=== PATIENT | male | born 1980 | race African-American/Black ===

== ENCOUNTER 2016-10-04 19:18 | Inpatient (IN) | payer OTHER ==
[~2016-10-04] VITALS: Ht 182.9 cm; Wt 72.6 kg
[2016-10-04 20:24] VITALS: BP 132/85
[2016-10-04] MEDS ORDERED: DuoNeb 0.5-3(2.5)mg/3ml neb HHN ONE (20:30)
[2016-10-04 20:38] LABS: EOSINOPHILS % (AUTO) 6.1 % (0.0-3.0); MEAN CORPUSCULAR HEMOGLOBIN 24.9 PG (27.0-31.0); MEAN CORPUSCULAR HGB CONC 31.2 G/DL (32.0-36.0); MEAN CORPUSCULAR VOLUME 80 FL (80-99); MEAN PLATELET VOLUME 7.4 FL (6.5-10.1); MONOCYTES % (AUTO) 4.6 % (1.0-10.0); NEUTROPHILS % (AUTO) 75.3 % (45.0-75.0); PLATELET COUNT 502 K/UL (150-450); RED BLOOD COUNT 3.99 M/UL (4.70-6.10); RED CELL DISTRIBUTION WIDTH 14.7 % (11.6-14.8); WHITE BLOOD COUNT 11.1 K/UL (4.8-10.8)
[2016-10-04 20:46] LABS: INR 1.1 (0.9-1.1); PROTHROMBIN TIME 11.2 SEC (9.30-11.50)
[2016-10-04 20:52] LABS: APPEARANCE,URINE VERY CLOUDY; KETONES,URINE NEGATIVE (NEGATIVE); LEUKOCYTE ESTERASE ,URINE NEGATIVE (NEGATIVE); NITRITE,URINE NEGATIVE (NEGATIVE); PH,URINE 6 (4.5-8.0); PROTEIN,URINE 3+ (NEGATIVE); UROBILINOGEN,URINE NORMAL MG/DL (0.0-1.0)
[2016-10-04 20:54] LABS: RBC,URINE TNTC /HPF (0 - 0)
[2016-10-04 20:55] LABS: BACTERIA,URINE MANY /HPF
[2016-10-04 21:00] VITALS: BP 121/50
[2016-10-04 21:02] LABS: TROPONIN I < 0.30 ng/mL (<=0.30)
[2016-10-04 21:04] LABS: ALANINE AMINOTRANSFERASE 40 U/L (3-41); ALBUMIN/GLOBULIN RATIO 0.9 (1.0-2.7); ANION GAP 17 (5-15); ASPARTATE AMINO TRANSFERASE 35 U/L (5-40); CARBON DIOXIDE 24 mEQ/L (20-30); CHLORIDE 97 mEQ/L (98-107); CREATININE 1.2 mg/dL (0.7-1.2); GLOMERULAR FILTRATION RATE > 60 mL/min (>60); HEMOLYSIS 1; POTASSIUM 4.6 mEQ/L (3.4-4.9); SODIUM 138 mEQ/L (135-145); TOTAL PROTEIN 7.3 g/dL (6.6-8.7)
[2016-10-04 21:14] LABS: CKMB 3.4 ng/mL (< 6.7)
[2016-10-04] MEDS ORDERED: Morphine Sulfate 4mg/ml Inj IVP ONE ×2 (21:30→22:30)
[2016-10-04] MEDS ORDERED: ALBUTEROL2.5 MG/3 M INH (21:40)
[2016-10-04] MEDS ORDERED: TRAMADOL HCL50 MG ORAL (21:40)
[2016-10-04 22:06] VITALS: BP 121/50
[2016-10-04] MEDS ORDERED: Ampicillin/Sulbactam Sod 3 GM in NS 110 ML IVPB ONE (22:30)
[2016-10-04] MEDS ORDERED: Unasyn 3gm Inj ONE (22:31)
[2016-10-04 23:38] VITALS: BP 139/104
[2016-10-04] MEDS ORDERED: DuoNeb 0.5-3(2.5)mg/3ml neb HHN PRN (23:45)
[2016-10-04] MEDS ORDERED: LORazepam Inj 2mg/ml 1ml IV PRN (23:45)
[2016-10-04] MEDS ORDERED: Ketorolac 30mg Inj IV PRN (23:45)
[2016-10-04] MEDS ORDERED: Nitroglycerin Subl 0.4mg tab (Bottle Of 25) SL PRN (23:45)
[2016-10-04] MEDS ORDERED: Promethazine/Codeine 5ml UD ORAL PRN (23:45)
[2016-10-05] MEDS: Morphine Sulfate 2mg/ml Inj IVP PRN ×2 (00:24→12:00)
[2016-10-05] MEDS: Solu-MEDROL 125mg Inj IV SCH ×4 (00:24→18:20)
--- NOTE | 2016-10-05 00:31 | Emergency Room Report ---
History of Present Illness General Chief Complaint: Dyspnea/Respdistress Source: Patient Present Illness HPI Patient is a 36-year-old male presented after increased difficulty breathing and hemoptysis. Patient was noted to have trace amount is. The patient had been having the hematuria. Patient had recent diagnosis of renal cell carcinoma. Patient was noted to have not had any prior biopsies done. He had the been having increased shortness of breath and increased cough. He denied any fever. The patient was noted to have prior CT imaging with some lung lesion several months ago Allergies: Coded Allergies: No Known Allergies (Unverified , 10/04/16) Patient History Past Medical History: see triage record Reviewed Nursing Documentation: PMH: Agreed, PSxH: Agreed Nursing Documentation-PMH Past Medical History: No History, Except For Review of Systems All Other Systems: negative except mentioned in HPI Physical Exam Vital Signs Date Time Temp Pulse Resp B/P Pulse Ox O2 Delivery O2 Flow Rate FiO2 10/04/16 19:37 98.4 125 32 118/67 74 Room Air 10/04/16 20:24 4.0 10/04/16 20:26 36 Sp02 EP Interpretation: abnormal - 85 General Appearance: alert, moderate distress, thin, Chronically Ill Head: normocephalic Eyes: bilateral eye PERRL ENT: normal pharynx, no angioedema Neck: full range of motion, supple Respiratory: wheezing, other Cardiovascular #1: tachycardia Cardiovascular #2: 0 carotid (R), 0 carotid (L), 0 radial (R), 0 radial (L), 0 femoral (R), 0 femoral (L), 0 dorsalis pedis (R), 0 dorsalis pedis (L) Gastrointestinal: normal bowel sounds, mass Musculoskeletal: normal inspection, back normal Neurologic: normal inspection, alert, oriented x3, responsive, 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 Differential diagnosis included was not limited to pulmonary embolism, bronchitis, lung mass, tuberculosis among others.Because of complexity of patient's case laboratory testing and imaging studies were ordered. Had a chest x-ray one view interpreted by me showed evidence of lung mass. CT imaging of the chest read by radiology showed extensive bilateral groundglass opacities with within lungs. 2.7 cm round masslike lesion right lower lobe 7 cm right renal mass. The patient was given breathing treatment started on IV antibiotics empirically. Patient was placed on BiPAP.Dr. farmer was contacted for inpatient management. Labs Test 10/04/16 20:01 10/04/16 20:19 10/04/16 20:32 Urine Color Brown Urine Appearance Very cloudy Urine pH 6 (4.5-8.0) Urine Specific [place] 1.020 (1.005-1.035) Urine Protein 3+ (NEGATIVE) Urine Glucose (UA) Negative (NEGATIVE) Urine Ketones Negative (NEGATIVE) Urine Occult Blood 5+ (NEGATIVE) Urine Nitrite Negative (NEGATIVE) Urine Bilirubin Negative (NEGATIVE) Urine Urobilinogen Normal MG/DL (0.0-1.0) Urine Leukocyte Esterase Negative (NEGATIVE) Urine RBC Tntc /HPF (0 - 0) Urine WBC 5-10 /HPF (0 - 0) Urine Squamous Epithelial Cells None /LPF (NONE/OCC) Urine Bacteria Many /HPF (NONE) White Blood Count 11.1 K/UL (4.8-10.8) Red Blood Count 3.99 M/UL (4.70-6.10) Hemoglobin 9.9 G/DL (14.2-18.0) Hematocrit 31.9 % (42.0-52.0) Mean Corpuscular Volume 80 FL (80-99) Mean Corpuscular Hemoglobin 24.9 PG (27.0-31.0) Mean Corpuscular Hemoglobin Concent 31.2 G/DL (32.0-36.0) Red Cell Distribution Width 14.7 % (11.6-14.8) Platelet Count 502 K/UL (150-450) Mean Platelet Volume 7.4 FL (6.5-10.1) Neutrophils (%) (Auto) 75.3 % (45.0-75.0) Lymphocytes (%) (Auto) 13.0 % (20.0-45.0) Monocytes (%) (Auto) 4.6 % (1.0-10.0) Eosinophils (%) (Auto) 6.1 % (0.0-3.0) Basophils (%) (Auto) 1.0 % (0.0-2.0) Prothrombin Time 11.2 SEC (9.30-11.50) Prothromb Time International Ratio 1.1 (0.9-1.1) Activated Partial Thromboplast Time 29 SEC (23-33) Sodium Level 138 mEQ/L (135-145) Potassium Level 4.6 mEQ/L (3.4-4.9) Chloride Level 97 mEQ/L (98-107) Carbon Dioxide Level 24 mEQ/L (20-30) Anion Gap 17 (5-15) Blood Urea Nitrogen 14 mg/dL (7-23) Creatinine 1.2 mg/dL (0.7-1.2) Estimat Glomerular Filtration Rate > 60 mL/min (>60) Glucose Level 112 mg/dL (74-106) Calcium Level 9.0 mg/dL (8.6-10.2) Total Bilirubin < 0.2 mg/dL (0.0-1.2) Aspartate Amino Transf (AST/SGOT) 35 U/L (5-40) Alanine Aminotransferase (ALT/SGPT) 40 U/L (3-41) Alkaline Phosphatase 93 U/L (40-129) Total Creatine Kinase 323 U/L (38-174) Creatine Kinase MB 3.4 ng/mL (< 6.7) Creatine Kinase MB Relative Index 1.0 Troponin I < 0.30 ng/mL (<=0.30) Total Protein 7.3 g/dL (6.6-8.7) Albumin 3.6 g/dL (3.5-5.2) Globulin 3.7 g/dL Albumin/Globulin Ratio 0.9 (1.0-2.7) Lactic Acid Level 1.40 mmol/L (0.66-2.22) Last Vital Signs Date Time Temp Pulse Resp B/P Pulse Ox O2 Delivery O2 Flow Rate FiO2 10/04/16 23:38 112 30 139/104 97 Bi-pap 10/04/16 22:39 40 10/04/16 22:06 98.4 10/04/16 21:00 4.0 Status: improved Disposition: HOME, SELF-CARE Condition: Stable Referrals: NOT CHOSEN IPA/,REFERRING (PCP) Mike Tan Oct 05, 2016 00:31
[2016-10-05 01:32] VITALS: BP 120/78
[2016-10-05 02:30] VITALS: BP 152/81
[2016-10-05 04:00] VITALS: BP 101/55
[2016-10-05] MEDS ORDERED: Zosyn 3.375gm inj ONE (04:11)
[2016-10-05] MEDS: Zosyn 3.375gm q8h **Extended infusion IVPB SCH ×4 (04:39→11:56)
[2016-10-05] MEDS ORDERED: Piperacillin/Tazobactam 2.25 GM in D5W 55 ML IV SCH (06:00)
[2016-10-05] MEDS: NovoLOG Insulin Flexpen SUBQ SCH ×4 (07:13→20:55)
[2016-10-05] MEDS ORDERED: Theophylline ER 100mg ORAL SCH (09:00)
[2016-10-05] MEDS ORDERED: Heparin 5000 units/ml inj SUBQ SCH (09:00)
--- NOTE | 2016-10-05 09:31 | History and Physical ---
History of Present Illness General Date patient seen: Oct 05, 2016 Reason for Hospitalization: Dyspnea/Respdistress Present Illness HPI 36-year-old male with hx of renal cell cancer, awaiting for surgery, [place] [facility] [place] of difficulty breathing and hemoptysis. The patient had been having the hematuria as well. The patient was noted to have prior CT imaging with some lung lesion several months ago. His CT in ER showed extensive metastasis. Allergies: Coded Allergies: No Known Allergies (Unverified , 10/04/16) Medication History Scheduled PRN Albuterol Sulfate* (Albuterol Sulfate Hhn*), Unknown Dose INH Q4H PRN for Shortness of Breath, (Reported) Tramadol Hcl* (Ultram*), Unknown Dose ORAL Q6H PRN for For Pain, (Reported) Patient History Healthcare decision maker Resuscitation status Full Code Advanced Directive on File No Past Medical/Surgical History Past Medical/Surgical History: (1) Renal cell cancer Review of Systems All Other Systems: negative except mentioned in HPI Physical Exam General Appearance: cachetic Lines, tubes and drains: peripheral, central line HEENT: normocephalic, atraumatic Neck: non-tender, normal alignment Respiratory/Chest: chest wall non-tender, lungs clear Breasts: no masses Cardiovascular/Chest: normal peripheral pulses Abdomen: normal bowel sounds, soft Genitourinary/Rectal: normal genital exam, normal rectal exam Extremities: normal range of motion, non-tender 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 Last 24 Hour Vital Signs Date Time Temp Pulse Resp B/P Pulse Ox O2 Delivery O2 Flow Rate FiO2 10/05/16 07:04 110 22 93 10/05/16 04:00 108 10/05/16 04:00 97.5 105 18 101/55 97 Nasal Cannula 10/05/16 02:58 107 24 98 Facial 40 10/05/16 02:30 96.1 107 21 152/81 98 Bi-pap 40 10/05/16 02:30 40 10/05/16 01:47 98.4 103 22 120/78 95 4.0 40 10/05/16 01:32 103 22 120/78 95 40 10/05/16 01:12 110 27 95 Facial 40 10/04/16 23:38 112 30 139/104 97 Bi-pap 10/04/16 22:39 107 43 97 Facial 40 10/04/16 22:06 98.4 10/04/16 22:06 98.4 117 21 121/50 97 Bi-pap 40 10/04/16 22:05 117 33 98 Facial 40 10/04/16 21:00 98.4 120 28 121/50 91 Nasal Cannula 4.0 10/04/16 20:45 32 88 Nasal Cannula 2.0 10/04/16 20:39 121 35 96 Nasal Cannula 4.0 36 10/04/16 20:26 118 29 Nasal Cannula 4.0 36 10/04/16 20:26 118 29 95 Nasal Cannula 4.0 36 10/04/16 20:24 98.4 123 32 132/85 87 Nasal Cannula 2.0 10/04/16 20:24 123 30 Nasal Cannula 4.0 10/04/16 19:37 98.4 125 32 118/67 74 Room Air Intake and Output 10/04/16 10/05/16 19:00 07:00 Intake Total 240 ml Output Total 300 ml Balance -60 ml Intake Oral 240 ml Output Urine Total 300 ml # Voids 2 # Bowel Movements 1 Laboratory Tests Test 10/04/16 20:01 10/04/16 20:19 10/04/16 20:32 Urine Color Brown Urine Appearance Very cloudy Urine pH 6 (4.5-8.0) Urine Specific [place] 1.020 (1.005-1.035) Urine Protein 3+ (NEGATIVE) H Urine Glucose (UA) Negative (NEGATIVE) Urine Ketones Negative (NEGATIVE) Urine Occult Blood 5+ (NEGATIVE) H Urine Nitrite Negative (NEGATIVE) Urine Bilirubin Negative (NEGATIVE) Urine Urobilinogen Normal MG/DL (0.0-1.0) Urine Leukocyte Esterase Negative (NEGATIVE) Urine RBC Tntc /HPF (0 - 0) H Urine WBC 5-10 /HPF (0 - 0) H Urine Squamous Epithelial Cells None /LPF (NONE/OCC) Urine Bacteria Many /HPF (NONE) H White Blood Count 11.1 K/UL (4.8-10.8) H Red Blood Count 3.99 M/UL (4.70-6.10) L Hemoglobin 9.9 G/DL (14.2-18.0) L Hematocrit 31.9 % (42.0-52.0) L Mean Corpuscular Volume 80 FL (80-99) Mean Corpuscular Hemoglobin 24.9 PG (27.0-31.0) L Mean Corpuscular Hemoglobin Concent 31.2 G/DL (32.0-36.0) L Red Cell Distribution Width 14.7 % (11.6-14.8) Platelet Count 502 K/UL (150-450) H Mean Platelet Volume 7.4 FL (6.5-10.1) Neutrophils (%) (Auto) 75.3 % (45.0-75.0) H Lymphocytes (%) (Auto) 13.0 % (20.0-45.0) L Monocytes (%) (Auto) 4.6 % (1.0-10.0) Eosinophils (%) (Auto) 6.1 % (0.0-3.0) H Basophils (%) (Auto) 1.0 % (0.0-2.0) Prothrombin Time 11.2 SEC (9.30-11.50) Prothromb Time International Ratio 1.1 (0.9-1.1) Activated Partial Thromboplast Time 29 SEC (23-33) Sodium Level 138 mEQ/L (135-145) Potassium Level 4.6 mEQ/L (3.4-4.9) Chloride Level 97 mEQ/L (98-107) L Carbon Dioxide Level 24 mEQ/L (20-30) Anion Gap 17 (5-15) H Blood Urea Nitrogen 14 mg/dL (7-23) Creatinine 1.2 mg/dL (0.7-1.2) Estimat Glomerular Filtration Rate > 60 mL/min (>60) Glucose Level 112 mg/dL (74-106) H Calcium Level 9.0 mg/dL (8.6-10.2) Total Bilirubin < 0.2 mg/dL (0.0-1.2) Aspartate Amino Transf (AST/SGOT) 35 U/L (5-40) Alanine Aminotransferase (ALT/SGPT) 40 U/L (3-41) Alkaline Phosphatase 93 U/L (40-129) Total Creatine Kinase 323 U/L (38-174) H Creatine Kinase MB 3.4 ng/mL (< 6.7) Creatine Kinase MB Relative Index 1.0 Troponin I < 0.30 ng/mL (<=0.30) Total Protein 7.3 g/dL (6.6-8.7) Albumin 3.6 g/dL (3.5-5.2) Globulin 3.7 g/dL Albumin/Globulin Ratio 0.9 (1.0-2.7) L Lactic Acid Level 1.40 mmol/L (0.66-2.22) Height (Feet): 6 Weight (Pounds): 160 Medications Current Medications Medications (Trade) Dose Ordered Sig/Jannie Route PRN Reason Start Time Stop Time Status Last Admin Dose Admin Albuterol/ Ipratropium (DuoNeb 0.5-3(2.5)mg/3ml) 3 ml Q4H PRN HHN dyspnea 10/04/16 23:45 10/09/16 23:44 Dextrose STAT PRN IV Hypoglycemia 10/04/16 23:45 11/03/16 23:44 Heparin Sodium (Porcine) (Heparin 5000 units/ml) 5,000 units EVERY 12 HOURS SUBQ 10/05/16 09:00 11/04/16 08:59 Insulin Aspart (NovoLOG) BEFORE MEALS AND HS SUBQ 10/05/16 06:30 11/04/16 06:29 10/05/16 07:13 Ketorolac Tromethamine (Toradol 30mg) 30 mg Q8H PRN IV moderate pain 4-6 10/04/16 23:45 10/09/16 23:44 10/05/16 02:35 Lorazepam (Ativan 2mg/ml 1ml) 0.5 mg Q4H PRN IV For Anxiety 10/04/16 23:45 10/11/16 23:44 Methylprednisolone Sodium Succinate (Solu-MEDROL) 60 mg EVERY 6 HOURS IV 10/05/16 00:00 11/04/16 00:00 10/05/16 06:27 Morphine Sulfate (Morphine Sulfate) 2 mg Q4H PRN IVP severe pain 7-10 10/04/16 23:45 10/11/16 23:44 10/05/16 00:24 Nitroglycerin (Ntg) 0.4 mg Q5M X 3 DOSES PRN SL Prn Chest Pain 10/04/16 23:45 11/03/16 23:44 Ondansetron HCl (Zofran) 4 mg Q6H PRN IVP Nausea & Vomiting 10/04/16 23:45 11/03/16 23:44 Piperacillin Sod/ Tazobactam Sod/ Dextrose (Zosyn/D5W) 110 ml @ 27.5 mls/hr Q8H IVPB 10/05/16 04:00 10/12/16 03:59 10/05/16 04:39 Promethazine HCl/ Codeine (Phenergan with Codeine) 5 ml Q6H PRN ORAL cough 10/04/16 23:45 11/03/16 23:44 Temazepam (Restoril) 15 mg HSPRN PRN ORAL Insomnia 10/04/16 23:45 10/11/16 23:44 Theophylline (Michael-Dur) 100 mg EVERY 12 HOURS ORAL 10/05/16 09:00 11/04/16 08:59 Assessment/Plan Problem List: (1) Lung mass ICD Codes: R91.8 - Other nonspecific abnormal finding of lung field SNOMED: 997396804, 82886908 (2) Acute respiratory failure ICD Codes: J96.00 - Acute respiratory failure, unspecified whether with hypoxia or hypercapnia SNOMED: 89002314 (3) Hemoptysis ICD Codes: R04.2 - Hemoptysis SNOMED: 88627026 (4) Hypoxia ICD Codes: R09.02 - Hypoxemia SNOMED: 053499075, 00521513 (5) Renal cell cancer ICD Codes: C64.9 - Malignant neoplasm of unspecified kidney, except renal pelvis SNOMED: 762507407, 70951936 Assessment/Plan check sputum antitussives IV steroids IV antibiotics JORGE ALLEN Oct 05, 2016 09:31
--- NOTE | 2016-10-05 10:30 | Diagnostic Imaging Report ---
Indication: Chest pain Technique: CT chest was performed utilizing automated exposure control with intravenous contrast material. Axial and coronal images were generated. CT dose: Total DLP 685 mGycm; CTDI vol 15.0 mGy Comparison: 10/04/16 Findings: There are extensive and patchy groundglass and consolidative opacities of the lungs bilaterally. Bilateral lung opacities are predominantly ill-defined although there is a more rounded masslike lesion in the right lower lobe measuring 2.7 cm. Moderate left and small right pleural effusions are seen. There is confluent bilateral hilar adenopathy measuring up to 4 x 1.9 cm on the right. There is a partially visualized 7 cm right renal heterogeneous hypodense mass. The osseous structures demonstrate no acute abnormality. Impression: Evaluation limited by motion. Extensive bilateral groundglass and consolidative opacities suggestive of infectious/inflammatory process such as pneumonia. Rounded masslike opacity in the right lower lobe measuring 2.7 cm. It is uncertain if is related to the above-mentioned process or neoplastic. Clinical correlation recommended. Approximately 7 cm hypodense right renal mass suspicious for neoplasm. Further evaluation recommended. Confluent bilateral hilar adenopathy could be inflammatory or neoplastic. Bilateral pleural effusions, left greater than right. Other findings as above. The CT scanner at [facility] is accredited by the [employer] and the scans are performed using protocols designed to limit radiation exposure to as low as reasonably achievable to attain images of sufficient resolution adequate for diagnostic evaluation.
[2016-10-05 12:00] VITALS: BP 123/72
[2016-10-05] MEDS ORDERED: Tubing IV Secondary IV ONE (13:43)
[2016-10-05] MEDS ORDERED: NS 275ml ONE (13:43)
--- NOTE | 2016-10-05 14:07 | Infectious Diseases Prog Note ---
Assessment/Plan Problems: (1) CAP (community acquired pneumonia) Assessment & Plan: on zosyn , will add vancomycin, send blood culture and sputum culture (2) Lung mass Assessment & Plan: with chronic tobacco abuse , rule out malignancy, recommend lung biopsy , and CT surgeon eval. pulmonary is following (3) Hemoptysis Assessment & Plan: due to the above , monitor H/H, and coagulation , transfuse blood as needed . pulmonary is following (4) Renal mass, right Assessment & Plan: suspect malignancy, recommend urologist consultation for possible surgical resection Subjective Allergies: Coded Allergies: No Known Allergies (Unverified , 10/04/16) Objective Vital Signs Last 24 Hour Vital Signs Date Time Temp Pulse Resp B/P Pulse Ox O2 Delivery O2 Flow Rate FiO2 10/05/16 13:08 105 30 98 Facial 40 10/05/16 10:58 98 24 92 10/05/16 08:56 108 24 92 10/05/16 08:00 97 10/05/16 07:04 110 22 93 10/05/16 04:00 108 10/05/16 04:00 97.5 105 18 101/55 97 Nasal Cannula 10/05/16 02:58 107 24 98 Facial 40 10/05/16 02:30 96.1 107 21 152/81 98 Bi-pap 40 10/05/16 02:30 40 10/05/16 01:47 98.4 103 22 120/78 95 4.0 40 10/05/16 01:32 103 22 120/78 95 40 10/05/16 01:12 110 27 95 Facial 40 10/04/16 23:38 112 30 139/104 97 Bi-pap 10/04/16 22:39 107 43 97 Facial 40 10/04/16 22:06 98.4 10/04/16 22:06 98.4 117 21 121/50 97 Bi-pap 40 10/04/16 22:05 117 33 98 Facial 40 10/04/16 21:00 98.4 120 28 121/50 91 Nasal Cannula 4.0 10/04/16 20:45 32 88 Nasal Cannula 2.0 10/04/16 20:39 121 35 96 Nasal Cannula 4.0 36 10/04/16 20:26 118 29 Nasal Cannula 4.0 36 10/04/16 20:26 118 29 95 Nasal Cannula 4.0 36 10/04/16 20:24 98.4 123 32 132/85 87 Nasal Cannula 2.0 10/04/16 20:24 123 30 Nasal Cannula 4.0 10/04/16 19:37 98.4 125 32 118/67 74 Room Air Height (Feet): 6 Weight (Pounds): 160 Laboratory Tests Test 10/04/16 20:01 10/04/16 20:19 10/04/16 20:32 Urine Color Brown Urine Appearance Very cloudy Urine pH 6 (4.5-8.0) Urine Specific [place] 1.020 (1.005-1.035) Urine Protein 3+ (NEGATIVE) H Urine Glucose (UA) Negative (NEGATIVE) Urine Ketones Negative (NEGATIVE) Urine Occult Blood 5+ (NEGATIVE) H Urine Nitrite Negative (NEGATIVE) Urine Bilirubin Negative (NEGATIVE) Urine Urobilinogen Normal MG/DL (0.0-1.0) Urine Leukocyte Esterase Negative (NEGATIVE) Urine RBC Tntc /HPF (0 - 0) H Urine WBC 5-10 /HPF (0 - 0) H Urine Squamous Epithelial Cells None /LPF (NONE/OCC) Urine Bacteria Many /HPF (NONE) H White Blood Count 11.1 K/UL (4.8-10.8) H Red Blood Count 3.99 M/UL (4.70-6.10) L Hemoglobin 9.9 G/DL (14.2-18.0) L Hematocrit 31.9 % (42.0-52.0) L Mean Corpuscular Volume 80 FL (80-99) Mean Corpuscular Hemoglobin 24.9 PG (27.0-31.0) L Mean Corpuscular Hemoglobin Concent 31.2 G/DL (32.0-36.0) L Red Cell Distribution Width 14.7 % (11.6-14.8) Platelet Count 502 K/UL (150-450) H Mean Platelet Volume 7.4 FL (6.5-10.1) Neutrophils (%) (Auto) 75.3 % (45.0-75.0) H Lymphocytes (%) (Auto) 13.0 % (20.0-45.0) L Monocytes (%) (Auto) 4.6 % (1.0-10.0) Eosinophils (%) (Auto) 6.1 % (0.0-3.0) H Basophils (%) (Auto) 1.0 % (0.0-2.0) Prothrombin Time 11.2 SEC (9.30-11.50) Prothromb Time International Ratio 1.1 (0.9-1.1) Activated Partial Thromboplast Time 29 SEC (23-33) Sodium Level 138 mEQ/L (135-145) Potassium Level 4.6 mEQ/L (3.4-4.9) Chloride Level 97 mEQ/L (98-107) L Carbon Dioxide Level 24 mEQ/L (20-30) Anion Gap 17 (5-15) H Blood Urea Nitrogen 14 mg/dL (7-23) Creatinine 1.2 mg/dL (0.7-1.2) Estimat Glomerular Filtration Rate > 60 mL/min (>60) Glucose Level 112 mg/dL (74-106) H Calcium Level 9.0 mg/dL (8.6-10.2) Total Bilirubin < 0.2 mg/dL (0.0-1.2) Aspartate Amino Transf (AST/SGOT) 35 U/L (5-40) Alanine Aminotransferase (ALT/SGPT) 40 U/L (3-41) Alkaline Phosphatase 93 U/L (40-129) Total Creatine Kinase 323 U/L (38-174) H Creatine Kinase MB 3.4 ng/mL (< 6.7) Creatine Kinase MB Relative Index 1.0 Troponin I < 0.30 ng/mL (<=0.30) Total Protein 7.3 g/dL (6.6-8.7) Albumin 3.6 g/dL (3.5-5.2) Globulin 3.7 g/dL Albumin/Globulin Ratio 0.9 (1.0-2.7) L Lactic Acid Level 1.40 mmol/L (0.66-2.22) Current Medications Medications (Trade) Dose Ordered Sig/Jannie Route PRN Reason Start Time Stop Time Status Last Admin Dose Admin Albuterol/ Ipratropium (DuoNeb 0.5-3(2.5)mg/3ml) 3 ml Q4H PRN HHN dyspnea 10/04/16 23:45 10/09/16 23:44 Dextrose STAT PRN IV Hypoglycemia 10/04/16 23:45 11/03/16 23:44 Heparin Sodium (Porcine) (Heparin 5000 units/ml) 5,000 units EVERY 12 HOURS SUBQ 10/05/16 09:00 11/04/16 08:59 10/05/16 09:18 Insulin Aspart (NovoLOG) BEFORE MEALS AND HS SUBQ 10/05/16 06:30 11/04/16 06:29 10/05/16 11:30 Ketorolac Tromethamine (Toradol 30mg) 30 mg Q8H PRN IV moderate pain 4-6 10/04/16 23:45 10/09/16 23:44 10/05/16 02:35 Lorazepam (Ativan 2mg/ml 1ml) 0.5 mg Q4H PRN IV For Anxiety 10/04/16 23:45 10/11/16 23:44 Methylprednisolone Sodium Succinate (Solu-MEDROL) 60 mg EVERY 6 HOURS IV 10/05/16 00:00 11/04/16 00:00 10/05/16 11:56 Morphine Sulfate (Morphine Sulfate) 2 mg Q4H PRN IVP severe pain 7-10 10/04/16 23:45 10/11/16 23:44 10/05/16 12:00 Nitroglycerin (Ntg) 0.4 mg Q5M X 3 DOSES PRN SL Prn Chest Pain 10/04/16 23:45 11/03/16 23:44 Ondansetron HCl (Zofran) 4 mg Q6H PRN IVP Nausea & Vomiting 10/04/16 23:45 11/03/16 23:44 Piperacillin Sod/ Tazobactam Sod/ Dextrose (Zosyn/D5W) 110 ml @ 27.5 mls/hr Q8H IVPB 10/05/16 04:00 10/12/16 03:59 10/05/16 11:56 Promethazine HCl/ Codeine (Phenergan with Codeine) 5 ml Q6H PRN ORAL cough 10/04/16 23:45 11/03/16 23:44 Temazepam (Restoril) 15 mg HSPRN PRN ORAL Insomnia 10/04/16 23:45 10/11/16 23:44 Theophylline (Michael-Dur) 100 mg EVERY 12 HOURS ORAL 10/05/16 09:00 11/04/16 08:59 10/05/16 09:16 Huang Sterling M.D. Oct 05, 2016 14:07
[2016-10-05 16:00] VITALS: BP 123/65
[2016-10-05] MEDS ORDERED: Vancomycin 1 GM in D5W 275 ML IVPB SCH (16:00)
[2016-10-05] MEDS ORDERED: Promethazine/Codeine 5ml UD ORAL PRN (16:00)
[2016-10-05] MEDS ORDERED: LORazepam Inj 2mg/ml 1ml IV PRN (16:00)
[2016-10-05] MEDS ORDERED: Morphine Sulfate 2mg/ml Inj IVP PRN (16:00)
[2016-10-05] MEDS ORDERED: Nitroglycerin Subl 0.4mg tab (Bottle Of 25) SL PRN (16:00)
[2016-10-05] MEDS: Vancomycin 1 GM in D5W 275 ML IVPB SCH (16:43)
[2016-10-05] MEDS: Ketorolac 30mg Inj IV PRN (17:08)
[2016-10-05] MEDS: Piperacillin/Tazobactam 3.375 GM in D5W 110 ML IVPB SCH (19:59)
[2016-10-05 20:00] VITALS: BP 128/83
[2016-10-05] MEDS: DuoNeb 0.5-3(2.5)mg/3ml neb HHN PRN ×2 (20:16→23:00)
--- NOTE | 2016-10-05 20:28 | History and Physical Report ---
DATE OF ADMISSION: 10/04/2016 TIME: At 8 a.m. CONSULTANTS: 1. Pushpa Andino M.D. 2. Raudel Goncalves M.D. 3. Huang Sterling M.D. 4. Carlos Whyte M.D. CHIEF COMPLAINT: Hemoptysis, short of breath, and renal mass. BRIEF HISTORY: This is a 36-year-old male who lives at home apparently coughed up some blood yesterday and he was slightly short of breath, became very worried, came in to [place] ER, diagnosed with above and admitted to [facility] for further care. Currently, O2 NC/short of breath, but otherwise no complaints. PAST MEDICAL HISTORY: Renal cell CA, lung mass, hypoxia, and hemoptysis. PAST SURGICAL HISTORY: None. MEDICATIONS: Heparin, theophylline, NovoLog, Solu-Medrol, Duo-Neb, Toradol, Ativan, morphine, nitroglycerin, Zofran, and Phenergan With Codeine. ALLERGIES: Denies. SOCIAL HISTORY: No smoke. No alcohol. No intravenous drug use. FAMILY HISTORY: Noncontributory. REVIEW OF SYSTEMS: No chest pain/shortness of breath. No nausea, vomiting or diarrhea. PHYSICAL EXAMINATION: GENERAL: The patient is calm in bed, oriented x3, no acute distress. O2 NC in place. VITAL SIGNS: Temperature 97 degrees, pulse 110, respiratory rate 22, and blood pressure 101/55. CARDIOVASCULAR: No murmur. LUNGS: Poor air exchange. ABDOMEN: Positive bowel sounds. Nontender and nondistended. EXTREMITIES: No cyanosis, clubbing or edema. NEUROLOGIC: Cranial nerves II through XII are grossly intact. Deep tendon reflex 2+/4. Muscle strength 4/5. LABORATORY AND DIAGNOSTIC DATA: White count 11.1, hemoglobin 9.9, hematocrit 31, and platelets is 502,000. BMP shows chloride 97 and glucose 112. CK is 323. INR is 1.1. Urinalysis showed 5+ blood, 3+ protein, and too numerous to count red blood cell. ASSESSMENT: 1. Hemoptysis. 2. Shortness of breath. 3. Renal mass, cell carcinoma. 4. Anemia. 5. Thrombocytosis. PLAN: Continue pre-medications. Antibiotics per Infectious Disease. O2 and pulmonary treatment. CBC and BMP in the morning. Dr. Andino, Dr. Goncalves, Dr. Sterling, Dr. Whyte, and Dr. Calderon to consult. We will continue to follow the patient. Abiel Mendosa D.O. DR: GAVIN JOB#: [id number] CC:
[2016-10-05] MEDS: Heparin 5000 units/ml inj SUBQ SCH (20:54)
[2016-10-05] MEDS: Theophylline ER 100mg ORAL SCH (20:55)
[2016-10-05 22:47] LABS: ANION GAP 13 (5-15); CALCIUM 9.4 mg/dL (8.6-10.2); CARBON DIOXIDE 27 mEQ/L (20-30); CHLORIDE 98 mEQ/L (98-107); CREATININE 1.3 mg/dL (0.7-1.2); GLOMERULAR FILTRATION RATE > 60 mL/min (>60); HEMOLYSIS 0; POTASSIUM 5.1 mEQ/L (3.4-4.9); SODIUM 138 mEQ/L (135-145)
[2016-10-06] VITALS: BP 115/63
[2016-10-06] MEDS: Solu-MEDROL 125mg Inj IV SCH ×4 (01:12→19:06)
[2016-10-06] MEDS: Ketorolac 30mg Inj IV PRN ×2 (01:13→19:07)
--- NOTE | 2016-10-06 01:18 | Consultation ---
DATE OF CONSULTATION: 10/05/2016 REQUESTING PHYSICIAN: Abiel Mendosa D.O. REASON FOR CONSULTATION: Bilateral pneumonia with diffuse patchy infiltration and recommendation for antibiotics therapy. HISTORY OF PRESENT ILLNESS: The patient is a 36-year-old male, who work as a outdoor power equipment mechanic, presented to the hospital with difficulty breathing and productive cough. The patient developed shortness of breath about a month ago with significant weight loss about 15 pounds. He starts coughing and developed shortness of breath with minimal activities. Lately, he has been coughing phlegm mixed with blood. He was short of breath, which prompt him to come into the emergency room for further evaluation. In ED, the patient had a CT scan of the chest and abdomen. It showed diffuse patchy infiltrates in both lungs with lung mass about 2.7 cm. He had also adrenal mass about 7 cm too, so he was admitted to the hospital and I was consulted by the primary provider for antibiotics recommendation for his pneumonia treatment. REVIEW OF SYSTEMS: A 12-point of systems reviewed were all negative apart from the one I mentioned above in my History and Physical. PAST MEDICAL HISTORY: Negative. PAST SURGICAL HISTORY: Negative. SOCIAL HISTORY: He smoked tobacco one to two packets per day for almost 15 years. He is a outdoor power equipment mechanic. Lives with his currently. FAMILY HISTORY: Negative for malignancy or recurrent infection. ALLERGIES: He has no known drug allergy. MEDICATIONS: The patient was started on Zosyn in the emergency room. For the rest of his medications, please refer to MAR. LABORATORY DATA: Labs showed white count of 11.1, hemoglobin of 9.9, hematocrit of 31.9, and platelet count of 542,000. BUN of 14 and creatinine of 1.2. AST of 35 and ALT of 40. Total creatine kinase of 323. IMAGING: CT scan of the chest showed extensive bilateral ground-glass and consolidative opacities suggestive of infectious or inflammatory process such as pneumonia, rounded mass-like opacity in the right lower lobe, measured 2.7 cm, approximately 7 cm hypodense right renal mass suspicious for neoplasm. PHYSICAL EXAMINATION: VITAL SIGNS: Temperature 97.5 degrees, pulse 105, respirations 30, blood pressure 101/55, and O2 saturation 98% with BiPAP and FiO2 of 40%. ASSESSMENT AND PLAN: 1. Community-acquired pneumonia with diffuse bilateral patchy infiltration, rule out infectious etiology such as bacterial versus fungal. We are going to screen him with fungal serology. At this point, we will continue bacterial antibiotics coverage with Zosyn and add vancomycin empirically. We will send blood culture and sputum culture. Monitor his chest x-ray. 2. Right renal mass, need MRI for further evaluation and urologist for possible resection. 3. Lung mass with chronic tobacco abuse, suspect malignancy. Recommend lung biopsy and CT surgery evaluation in addition to Oncology consult. The patient is being followed by car driver now. 4. Hemoptysis is due to the above. Continue to monitor hemoglobin and hematocrit . Transfuse blood as needed. Pulmonary is following. Thank you. Huang Sterling M.D. DR: PHILLIP JOB#: [id number] CC: SCOTT
--- NOTE | 2016-10-06 02:58 | Consultation ---
DATE OF CONSULTATION: 10/05/2016 HEMATOLOGY/ONCOLOGY CONSULT CONSULTING PHYSICIAN: Parish Calderon M.D. ATTENDING PHYSICIAN: Abiel Mendosa D.O. CURRENT COMPLAINT AND HISTORY OF PRESENT ILLNESS: Dear Dr. Abiel Mendosa, Today, I had an opportunity to see one of your patient, Mr. Zach Sanchez, who as you well aware is a 36-year-old delightful gentleman with a past medical history remarkable for renal cell carcinoma on the right side (clinical diagnosis, not biopsy proven). At this time, the patient developed hemoptysis and ended up in the emergency room at [facility]. During evaluation, on the CT scan of the chest it was found that the patient developed bilateral hilar adenopathy as well as right lower lobe lung mass as well as the right renal mass. During evaluation, it was also found that the patient developed significant leukocytosis, anemia, and thrombocytosis. My service was called to handle the issue of a renal cell mass, lung mass, as well as a blood dyscrasia. PAST MEDICAL HISTORY: 1. Right-sided renal mass, possible renal cell carcinoma (clinical diagnosis, not biopsy proven). 2. History of hematuria. 3. History of lung mass. SOCIAL HISTORY: No history of smoking. No history of illicit drug use. No history of alcohol abuse. FAMILY HISTORY: Noncontributory. REVIEW OF SYSTEMS: General: The patient is not in any significant distress. Respiratory: The patient is complaining of hemoptysis. The patient claims shortness of breath. Gastrointestinal: The patient claims constipation. Neuromuscular: The patient claim muscle aches. PHYSICAL EXAMINATION: VITAL SIGNS: T-max 97 degrees, respiratory rate 20, heart rate 80, and blood pressure 130/80. HEENT: Head, normocephalic and atraumatic. NECK: Supple. No thyroid enlargement. No lymphadenopathy. LUNGS: Decreased breath sounds bilaterally with a few rhonchi at the base. HEART: S1 and S2 regular. ABDOMEN: Soft and benign. No organomegaly. Bowel sounds present. EXTREMITIES: No cyanosis, clubbing, or edema. LABORATORY DATA: WBC 11.1, hemoglobin 9.9, hematocrit 31.9, and platelets 502,000. Coagulation show INR 1.1. Chemistry show creatinine 1.2. IMPRESSION: 1. Right-sided renal mass, possible renal cell carcinoma (clinical diagnosis, not biopsy proven). 2. Right lower lobe lung mass. 3. Bilateral hilar adenopathy, rule out renal cell carcinoma. 4. Metastasis to the lung, primary lung cancer. 5. Bilateral pleural effusion, rule out malignant pleural effusion. 6. Leukocytosis with left shift. 7. Anemia of malignancy. 8. Anemia of chronic disease. 9. Thrombocytosis, reactive. 10. Hemoptysis. 11. Respiratory insufficiency. 12. History of hematuria. 13. Failure to thrive. RECOMMENDATIONS: 1. Watch counts. 2. Watch coagulopathy. 3. CT scan of the abdomen and pelvis with a contrast to complete the staging. 4. Need tissue diagnosis. CT-guided lung biopsy versus bronchoscopy will be considered. 5. Urology evaluation for possible right-sided nephrectomy. 6. Respiratory treatment. 7. Renal Doppler of bilateral lower extremities to rule out DVT. 8. Heparin subcutaneously for DVT prophylaxis. 9. Skin care. 10. Nutrition. 11. Close followup. Dear Dr. Abiel Mendosa, I greatly appreciate the opportunity to participate in the care of one of your patients. this interesting and challenging case. Parish Calderon MD DR: JESSY JOB#: [id number] CC:
--- NOTE | 2016-10-06 03:38 | Consultation ---
DATE OF CONSULTATION: 10/05/2016 HEMATOLOGY/ONCOLOGY CONSULTATION CONSULTING PHYSICIAN: Parish Calderon M.D. REQUESTING PHYSICIAN: Abiel Mendosa D.O. REASON FOR CONSULTATION: Evaluation of anemia and history of chronic DVT. IDENTIFICATION DATA: Dear Dr. Yanci Mendosa, This is a 36-year-old male with past medical history unremarkable for renal cell carcinoma. This time, the patient admitted to [facility] with difficulty breathing and hemoptysis. The patient claims that she did not have any prior biopsy down. Again, the patient complains of shortness of breath and increased cough. During evaluation in the emergency room, it was found that the patient with lung mass as well as hilar adenopathy as well as renal mass. show malignancy as well as blood dyscrasia. PAST MEDICAL HISTORY: History of renal cell carcinoma (no biopsy proven). ALLERGIES: NKDA. FAMILY HISTORY: Noncontributory. DICTATION ENDED ABRUPTLY Parish Calderon MD DR: CORTEZ JOB#: [id number] CC:
[2016-10-06] MEDS: Vancomycin 1 GM in D5W 275 ML IVPB SCH ×2 (03:44→16:57)
[2016-10-06] MEDS: Piperacillin/Tazobactam 3.375 GM in D5W 110 ML IVPB SCH ×3 (04:00→20:06)
--- NOTE | 2016-10-06 04:58 | Consultation ---
DATE OF CONSULTATION: 10/05/2016 NOTE: BAD AUDIO QUALITY GASTROENTEROLOGY CONSULTATION CHIEF COMPLAINT: I was asked to see this patient for evaluation of possible hematemesis. HISTORY OF PRESENT ILLNESS: The patient is a 36-year-old man with a history of renal cell carcinoma who awaiting surgery, came to the hospital due to difficulty breathing and coughing up blood. possibly vomiting of blood, but upon further questioning, the patient clearly states that he had coughing with sputum formation and will get streaks of blood. The patient has had previous CT scan of some lung lesion. There is also some hematuria. He has extensive metastasis . PAST MEDICAL HISTORY: Renal cell carcinoma with atrophy. FAMILY HISTORY: Noncontributory. SOCIAL HISTORY: The patient is here with his girlfriend. He lives in [facility] . REVIEW OF SYSTEMS: Otherwise negative. ALLERGIES: None. PHYSICAL EXAMINATION: GENERAL: A pleasant man, seen in his room HEENT: Normocephalic and atraumatic. Sclerae anicteric. Oropharynx is clear. NECK: Supple. CHEST: Clear to auscultation. CARDIOVASCULAR: Regular rate. ABDOMEN: Soft. EXTREMITIES: No edema. LABORATORY DATA: Noted. ASSESSMENT: This patient presents renal cell carcinoma. The patient also has hemoptysis based on his historical description. Has some mild anemia, but the possibility of actual hematemesis is unlikely. services. In the meantime, the patient should be supported nutritionally and I will follow him with you. RECOMMENDATIONS: Per above discussion and per orders written in the chart. Thank you for asking me to participate in the care of this patient. Erendira Wilson M.D. DR: SHAHID JOB#: [id number] CC:
[2016-10-06] MEDS: NovoLOG Insulin Flexpen SUBQ SCH ×4 (06:30→21:50)
[2016-10-06 07:32] LABS: MEAN CORPUSCULAR HEMOGLOBIN 25.7 PG (27.0-31.0); MEAN CORPUSCULAR HGB CONC 32.2 G/DL (32.0-36.0); MEAN CORPUSCULAR VOLUME 80 FL (80-99); MEAN PLATELET VOLUME 7.2 FL (6.5-10.1); PLATELET COUNT 506 K/UL (150-450); RED BLOOD COUNT 3.65 M/UL (4.70-6.10); WHITE BLOOD COUNT 16.9 K/UL (4.8-10.8)
[2016-10-06 07:53] LABS: ANION GAP 13 (5-15); CALCIUM 9.4 mg/dL (8.6-10.2); CARBON DIOXIDE 27 mEQ/L (20-30); CHLORIDE 102 mEQ/L (98-107); CREATININE 1.3 mg/dL (0.7-1.2); GLOMERULAR FILTRATION RATE > 60 mL/min (>60); HEMOLYSIS 0; POTASSIUM 5.4 mEQ/L (3.4-4.9); SODIUM 142 mEQ/L (135-145)
--- NOTE | 2016-10-06 07:57 | General Progress Note ---
Assessment/Plan Problem List: (1) Renal cell cancer ICD Codes: C64.9 - Malignant neoplasm of unspecified kidney, except renal pelvis SNOMED: 857717869, 10344560 (2) Hemoptysis ICD Codes: R04.2 - Hemoptysis SNOMED: 98397248 (3) Renal mass, right ICD Codes: N28.89 - Other specified disorders of kidney and ureter SNOMED: 524425024 (4) Hypoxia ICD Codes: R09.02 - Hypoxemia SNOMED: 061963829, 92753432 Status: stable, progressing, tolerating diet Assessment/Plan o2 pulm tx abx cbc bmp am Subjective Constitutional: Reports: weakness Allergies: Coded Allergies: No Known Allergies (Unverified , 10/04/16) All Systems: reviewed and negative except above Subjective sleepy calm Objective Last 24 Hour Vital Signs Date Time Temp Pulse Resp B/P Pulse Ox O2 Delivery O2 Flow Rate FiO2 10/06/16 00:00 98.2 94 18 115/63 99 Nasal Cannula 4.0 10/05/16 23:02 112 27 99 Nasal Cannula 5.0 40 10/05/16 20:39 108 27 97 Nasal Cannula 5.0 40 10/05/16 20:21 105 26 97 Nasal Cannula 5.0 40 10/05/16 20:00 98.4 105 21 128/83 98 Nasal Cannula 4.0 10/05/16 16:40 103 28 98 Facial 40 10/05/16 16:00 98.3 94 25 123/65 97 Nasal Cannula 4.0 10/05/16 15:16 108 30 97 Facial 40 10/05/16 13:08 105 30 98 Facial 40 10/05/16 12:00 98.2 119 22 123/72 97 Nasal Cannula 4.0 10/05/16 10:58 98 24 92 10/05/16 08:56 108 24 92 10/05/16 08:00 97 Intake and Output 10/05/16 10/06/16 19:00 07:00 Intake Total 525.000 ml 745.000 ml Output Total 350 ml Balance 525.000 ml 395.000 ml Intake Oral 250 ml 360 ml IV Total 275.000 ml 385.000 ml Output Urine Total 350 ml # Voids 1 # Bowel Movements 1 Laboratory Tests 10/05/16 18:30: Blastomyces Ab Immunodiffusion [Pending], Coccidioides Antibody (Comp Fix) [ Pending], Cryptococcus Antigen [Pending], Histoplasma Mycelial Antibody [Pending ], Histoplasma Antibody w Mycelial Ag [Pending], Histoplasma Antibody with Yeast Ag [Pending] 10/05/16 21:45: Sodium Level 138, Potassium Level 5.1H, Chloride Level 98, Carbon Dioxide Level 27, Anion Gap 13, Blood Urea Nitrogen 22, Creatinine 1.3H, Estimat Glomerular Filtration Rate > 60, Glucose Level 149H, Calcium Level 9.4, Carcinoembryonic Antigen 0.5, Vitamin B12 Level 516 10/06/16 05:10: Sodium Level [Pending], Potassium Level [Pending], Chloride Level [Pending], Carbon Dioxide Level [Pending], Blood Urea Nitrogen [Pending], Creatinine [ Pending], Estimat Glomerular Filtration Rate [Pending], Glucose Level [Pending] , Calcium Level [Pending], White Blood Count 16.9#H, Red Blood Count 3.65L, Hemoglobin 9.4L, Hematocrit 29.1L, Mean Corpuscular Volume 80, Mean Corpuscular Hemoglobin 25.7L, Mean Corpuscular Hemoglobin Concent 32.2, Red Cell Distribution Width 15.0H, Platelet Count 506H, Mean Platelet Volume 7.2, Neutrophils (%) (Auto) , Lymphocytes (%) (Auto) , Monocytes (%) (Auto) , Eosinophils (%) (Auto) , Basophils (%) (Auto) , Neutrophils % (Manual) [Pending] , Lymphocytes % (Manual) [Pending], Platelet Estimate [Pending], Platelet Morphology [Pending] Height (Feet): 6 Weight (Pounds): 160 General Appearance: lethargic EENT: normal ENT inspection Neck: normal alignment Cardiovascular: normal peripheral pulses, normal rate, regular rhythm Respiratory/Chest: chest wall non-tender, lungs clear, normal breath sounds Abdomen: normal bowel sounds, non tender, soft Extremities: normal inspection Edema: no edema noted Arm (L), no edema noted Arm (R), no edema noted Leg (L), no edema noted Leg (R), no edema noted Pedal (L), no edema noted Pedal (R), no edema noted Generalized Neurologic: responsive, motor weakness Skin: normal pigmentation, warm/dry BALDOMERO ARCE Oct 06, 2016 07:57
[2016-10-06 08:05] VITALS: BP 127/72
--- NOTE | 2016-10-06 08:07 | General Progress Note ---
Assessment/Plan Assessment/Plan IMPRESSION: 1. Renal cell carcinoma with metastasis to the lungs - plan at [facility] was resection of renal mass, [place] [facility] [place], ideally would be discharge or transferred by then, of critical importance for renal mass resection. Thereafter can consider immunotherapy (IL-2) v targeted agents 2. Anemia of malignancy 3. Bilateral hilar adenopathy, likely renal cell ca 4. Metastasis to the lung, of renal cell ca 5. Bilateral pleural effusion, rule out malignant pleural effusion. 6. Leukocytosis with left shift. 7. Anemia of malignancy. 10. Thrombocytosis, reactive. 11. Hemoptysis. 12. Respiratory insufficiency. 13. History of hematuria. 14. Failure to thrive. RECOMMENDATIONS: 1. Plan at [facility] was resection of renal mass, [place] [facility] [place], ideally would be discharge or transferred by then, of critical importance for renal mass resection. Thereafter can consider immunotherapy (IL-2) v targeted agents 2. Imaging has been reviewed 3. Appreciate GI recs 4. Urology evaluation for possible right-sided nephrectomy at [facility] 5. Doppler of bilateral lower extremities to rule out DVT. 6. Heparin subcutaneously for DVT prophylaxis. 7. Hgb goal >7 8. Close followup. Subjective Constitutional: Reports: no symptoms HEENT: Reports: no symptoms Cardiovascular: Reports: no symptoms Respiratory: Reports: no symptoms Gastrointestinal/Abdominal: Reports: poor appetite Genitourinary: Reports: no symptoms Neurologic/Psychiatric: Reports: no symptoms Endocrine: Reports: no symptoms Hematologic/Lymphatic: Reports: anemia Allergies: Coded Allergies: No Known Allergies (Unverified , 10/04/16) Subjective to have [place] anesthesia appointment [place] 10[place]08[place] [facility] [place] Last 24 Hour Vital Signs Date Time Temp Pulse Resp B/P Pulse Ox O2 Delivery O2 Flow Rate FiO2 10/06/16 00:00 98.2 94 18 115/63 99 Nasal Cannula 4.0 10/05/16 23:02 112 27 99 Nasal Cannula 5.0 40 10/05/16 20:39 108 27 97 Nasal Cannula 5.0 40 10/05/16 20:21 105 26 97 Nasal Cannula 5.0 40 10/05/16 20:00 98.4 105 21 128/83 98 Nasal Cannula 4.0 10/05/16 16:40 103 28 98 Facial 40 10/05/16 16:00 98.3 94 25 123/65 97 Nasal Cannula 4.0 10/05/16 15:16 108 30 97 Facial 40 10/05/16 13:08 105 30 98 Facial 40 10/05/16 12:00 98.2 119 22 123/72 97 Nasal Cannula 4.0 10/05/16 10:58 98 24 92 10/05/16 08:56 108 24 92 Intake and Output 10/05/16 10/06/16 19:00 07:00 Intake Total 525.000 ml 745.000 ml Output Total 350 ml Balance 525.000 ml 395.000 ml Intake Oral 250 ml 360 ml IV Total 275.000 ml 385.000 ml Output Urine Total 350 ml # Voids 1 # Bowel Movements 1 Laboratory Tests 10/05/16 18:30: Blastomyces Ab Immunodiffusion [Pending], Coccidioides Antibody (Comp Fix) [ Pending], Cryptococcus Antigen [Pending], Histoplasma Mycelial Antibody [Pending ], Histoplasma Antibody w Mycelial Ag [Pending], Histoplasma Antibody with Yeast Ag [Pending] 10/05/16 21:45: Sodium Level 138, Potassium Level 5.1H, Chloride Level 98, Carbon Dioxide Level 27, Anion Gap 13, Blood Urea Nitrogen 22, Creatinine 1.3H, Estimat Glomerular Filtration Rate > 60, Glucose Level 149H, Calcium Level 9.4, Carcinoembryonic Antigen 0.5, Vitamin B12 Level 516 10/06/16 05:10: Sodium Level 142, Potassium Level 5.4H, Chloride Level 102, Carbon Dioxide Level 27, Anion Gap 13, Blood Urea Nitrogen 21, Creatinine 1.3H, Estimat Glomerular Filtration Rate > 60, Glucose Level 150H, Calcium Level 9.4, White Blood Count 16.9#H, Red Blood Count 3.65L, Hemoglobin 9.4L, Hematocrit 29.1L, Mean Corpuscular Volume 80, Mean Corpuscular Hemoglobin 25.7L, Mean Corpuscular Hemoglobin Concent 32.2, Red Cell Distribution Width 15.0H, Platelet Count 506H , Mean Platelet Volume 7.2, Neutrophils (%) (Auto) , Lymphocytes (%) (Auto) , Monocytes (%) (Auto) , Eosinophils (%) (Auto) , Basophils (%) (Auto) , Neutrophils % (Manual) [Pending], Lymphocytes % (Manual) [Pending], Platelet Estimate [Pending], Platelet Morphology [Pending] Height (Feet): 6 Weight (Pounds): 160 General Appearance: no apparent distress EENT: normal ENT inspection Neck: supple Cardiovascular: regular rhythm Respiratory/Chest: lungs clear Abdomen: normal bowel sounds Extremities: normal range of motion Edema: trace edema Neurologic: alert Skin: warm/dry Mk Calderon Oct 06, 2016 08:07
[2016-10-06 08:27] LABS: HEMOLYSIS 15; IRON 12 ug/dL (59-158); TOTAL IRON BINDING CAPACITY 248 ug/dL (250-400)
[2016-10-06 08:38] LABS: FERRITIN 54 ng/mL (10-230)
[2016-10-06] MEDS: Theophylline ER 100mg ORAL SCH ×2 (08:59→20:05)
[2016-10-06] MEDS: Heparin 5000 units/ml inj SUBQ SCH ×2 (09:02→20:08)
[2016-10-06 09:59] LABS: BAND NEUTROPHILS % (MANUAL) 1 % (0-8); BASOPHILS % (MANUAL) 0 % (0-2); EOSINOPHILS % (MANUAL) 0 % (0-3); LYMPHOCYTES % (MANUAL) 5 % (20-45); NEUTROPHILS % (MANUAL) 89 % (45-75); PLATELET ESTIMATE INCREASED; PLATELET MORPHOLOGY NORMAL; TOTAL CELLS COUNTED 100
[2016-10-06 10:00] LABS: ANISOCYTOSIS 1+; HYPOCHROMASIA 1+; POLYCHROMASIA OCCASIONAL
[2016-10-06 10:02] LABS: MICROCYTES 1+
[2016-10-06 10:26] LABS: PATH BLOOD SMEAR/OMC SENT TO PATHOLOGIST; RETICULOCYTE COUNT 1.6 % (0.0-2.0)
[2016-10-06] MEDS: DuoNeb 0.5-3(2.5)mg/3ml neb HHN PRN ×4 (11:10→23:39)
--- NOTE | 2016-10-06 11:56 | Diagnostic Imaging Report ---
\H\CT Abdomen/Pelvis with Intravenous Contrast INDICATION: \N\Hematuria. Reported no history of renal cell carcinoma. Shortness of breath.\H\ COMPARISON: \N\None available.\H\ TECHNIQUE: Serial axial images were obtained from the lung bases through the symphysis pubis after intravenous administration of contrast. Coronal and sagittal reformats were obtained. Dose Estimate: Total DLP \N\578\H\ mGycm CTDIvol \N\11\H\ mGy FINDINGS: Small left pleural effusion is noted. Extensive ill-defined airspace opacities are identified suspicious for pneumonia or malignancy. Please refer to the recently performed chest CT report. The liver is unremarkable. The gallbladder is unremarkable. The pancreas, spleen and adrenal glands are unremarkable. There is a 6.2 x 6.9 x 7.8 cm heterogeneously hypodense right renal mass suspicious for neoplasm. Large complex abscess is a differential consideration. Sampling should be considered, if clinically warranted. Heterogeneous enhancement of the medial right upper kidney may reflect concomitant pyelonephritis or infarct. No definite left renal mass is identified. There is no hydronephrosis. The urinary bladder is grossly unremarkable. The pelvic organs are grossly unremarkable. The visualized bowel are grossly unremarkable. There is no evidence of obstruction. There is no extraluminal gas or fluid. Few enlarged lymph nodes are noted in the upper abdomen particularly in the para-aortic region. A 1 cm enlarged lymph node with central hypodensity posterior and medial to the IVC just below the left renal vein insertion is suspicious for a necrotic lymph node. There is no significant calcified atherosclerotic disease of the the abdominal aorta. No destructive osseous lesion is identified. \N\\H\Impression: 1. Large heterogeneously hypodense right renal mass, suspicious for neoplasm such as renal lymphoma. Large abscess is a less likely differential consideration, particularly given described abdominal lymphadenopathy and recently performed chest CT findings. Sampling of the renal mass may be considered, as clinically warranted. 2. Heterogeneous enhancement of the upper right kidney may reflect concomitant pyelonephritis or infarct due to mass effect. 3. Small left pleural effusion with nonspecific airspace opacities. Please refer to the recently performed chest CT report.\N\
[2016-10-06 12:13] VITALS: BP 120/64
[2016-10-06 16:00] VITALS: BP 127/64
--- NOTE | 2016-10-06 17:59 | General Progress Note ---
Assessment/Plan Assessment/Plan Assessment - Hemoptysis - Anemia - Renal cell CA Recommendations - f/u CT - monitor CBC Subjective Allergies: Coded Allergies: No Known Allergies (Unverified , 10/04/16) Subjective Feels OK for CT Objective Last 24 Hour Vital Signs Date Time Temp Pulse Resp B/P Pulse Ox O2 Delivery O2 Flow Rate FiO2 10/06/16 16:00 98.1 107 18 127/64 98 Nasal Cannula 5.0 10/06/16 15:53 110 23 99 Nasal Cannula 5.0 40 10/06/16 15:45 110 23 97 Nasal Cannula 5.0 40 10/06/16 12:13 97.2 113 20 120/64 98 Room Air 10/06/16 11:10 104 28 100 Nasal Cannula 5.0 40 10/06/16 08:05 96.4 102 21 127/72 94 Room Air 10/06/16 00:00 98.2 94 18 115/63 99 Nasal Cannula 4.0 10/05/16 23:02 112 27 99 Nasal Cannula 5.0 40 10/05/16 20:39 108 27 97 Nasal Cannula 5.0 40 10/05/16 20:21 105 26 97 Nasal Cannula 5.0 40 10/05/16 20:00 98.4 105 21 128/83 98 Nasal Cannula 4.0 Intake and Output 10/05/16 10/06/16 19:00 07:00 Intake Total 525.000 ml 745.000 ml Output Total 350 ml Balance 525.000 ml 395.000 ml Intake Oral 250 ml 360 ml IV Total 275.000 ml 385.000 ml Output Urine Total 350 ml # Voids 1 # Bowel Movements 1 Laboratory Tests 10/05/16 18:30: Blastomyces Ab Immunodiffusion [Pending], Coccidioides Antibody (Comp Fix) [ Pending], Cryptococcus Antigen [Pending], Histoplasma Mycelial Antibody [Pending ], Histoplasma Antibody w Mycelial Ag [Pending], Histoplasma Antibody with Yeast Ag [Pending] 10/05/16 21:45: Sodium Level 138, Potassium Level 5.1H, Chloride Level 98, Carbon Dioxide Level 27, Anion Gap 13, Blood Urea Nitrogen 22, Creatinine 1.3H, Estimat Glomerular Filtration Rate > 60, Glucose Level 149H, Calcium Level 9.4, Carcinoembryonic Antigen 0.5, Vitamin B12 Level 516 10/06/16 05:10: Sodium Level 142, Potassium Level 5.4H, Chloride Level 102, Carbon Dioxide Level 27, Anion Gap 13, Blood Urea Nitrogen 21, Creatinine 1.3H, Estimat Glomerular Filtration Rate > 60, Glucose Level 150H, Calcium Level 9.4, Vitamin B12 Level 457, White Blood Count 16.9#H, Red Blood Count 3.65L, Hemoglobin 9.4L , Hematocrit 29.1L, Mean Corpuscular Volume 80, Mean Corpuscular Hemoglobin 25.7L, Mean Corpuscular Hemoglobin Concent 32.2, Red Cell Distribution Width 15.0H, Platelet Count 506H, Mean Platelet Volume 7.2, Neutrophils (%) (Auto) , Lymphocytes (%) (Auto) , Monocytes (%) (Auto) , Eosinophils (%) (Auto) , Basophils (%) (Auto) , Differential Total Cells Counted 100, Neutrophils % ( Manual) 89H, Lymphocytes % (Manual) 5L, Monocytes % (Manual) 5, Eosinophils % ( Manual) 0, Basophils % (Manual) 0, Band Neutrophils 1, Platelet Estimate IncreasedH, Platelet Morphology Normal, Polychromasia Occasional, Hypochromasia 1+, Anisocytosis 1+, Microcytosis 1+, Reticulocyte Count 1.6, Haptoglobin 451H, Iron Level 12L, Total Iron Binding Capacity 248L, Percent Iron Saturation 5L, Unsaturated Iron Binding 236, Ferritin 54, Folate [Pending] Height (Feet): 6 Weight (Pounds): 160 Objective WDWN NCAT supple CTA RR soft No edema non focal JOHN SHELDON Oct 06, 2016 17:59
--- NOTE | 2016-10-06 18:30 | Cardiology Report ---
APPROVED REPORT EKG Measurement Heart [id number] Sinus tachycardia Rightward axis Borderline ECG
[2016-10-06 20:00] VITALS: BP 129/73
--- NOTE | 2016-10-06 22:50 | Pulmonology Progress Note ---
Assessment/Plan Problems: (1) Lung mass (2) Acute respiratory failure (3) Hemoptysis (4) Hypoxia (5) Renal cell cancer Subjective Allergies: Coded Allergies: No Known Allergies (Unverified , 10/04/16) Objective Last 24 Hour Vital Signs Date Time Temp Pulse Resp B/P Pulse Ox O2 Delivery O2 Flow Rate FiO2 10/06/16 20:20 108 23 99 Nasal Cannula 5.0 40 10/06/16 20:12 107 23 98 Nasal Cannula 5.0 40 10/06/16 20:00 97.7 105 18 129/73 99 Nasal Cannula 5.0 10/06/16 16:00 98.1 107 18 127/64 98 Nasal Cannula 5.0 10/06/16 15:53 110 23 99 Nasal Cannula 5.0 40 10/06/16 15:45 110 23 97 Nasal Cannula 5.0 40 10/06/16 12:13 97.2 113 20 120/64 98 Room Air 10/06/16 11:10 104 28 100 Nasal Cannula 5.0 40 10/06/16 08:05 96.4 102 21 127/72 94 Room Air 10/06/16 00:00 98.2 94 18 115/63 99 Nasal Cannula 4.0 10/05/16 23:02 112 27 99 Nasal Cannula 5.0 40 Intake and Output 10/05/16 10/06/16 19:00 07:00 Intake Total 525.000 ml 745.000 ml Output Total 350 ml Balance 525.000 ml 395.000 ml Intake Oral 250 ml 360 ml IV Total 275.000 ml 385.000 ml Output Urine Total 350 ml # Voids 1 # Bowel Movements 1 Microbiology Date/Time Source Procedure Growth Status 10/04/16 19:42 Blood Blood Culture - Preliminary NO GROWTH AFTER 24 HOURS Resulted 10/04/16 19:42 Blood Blood Culture - Preliminary NO GROWTH AFTER 24 HOURS Resulted 10/04/16 20:01 Urine,Clean Catch Urine Culture - Preliminary NO GROWTH AFTER 24 HOURS Resulted Laboratory Tests 10/06/16 05:10: White Blood Count 16.9#H, Red Blood Count 3.65L, Hemoglobin 9.4L, Hematocrit 29.1L, Mean Corpuscular Volume 80, Mean Corpuscular Hemoglobin 25.7L, Mean Corpuscular Hemoglobin Concent 32.2, Red Cell Distribution Width 15.0H, Platelet Count 506H, Mean Platelet Volume 7.2, Neutrophils (%) (Auto) , Lymphocytes (%) (Auto) , Monocytes (%) (Auto) , Eosinophils (%) (Auto) , Basophils (%) (Auto) , Differential Total Cells Counted 100, Neutrophils % ( Manual) 89H, Lymphocytes % (Manual) 5L, Monocytes % (Manual) 5, Eosinophils % ( Manual) 0, Basophils % (Manual) 0, Band Neutrophils 1, Platelet Estimate IncreasedH, Platelet Morphology Normal, Polychromasia Occasional, Hypochromasia 1+, Anisocytosis 1+, Microcytosis 1+, Reticulocyte Count 1.6, Haptoglobin 451H, Sodium Level 142, Potassium Level 5.4H, Chloride Level 102, Carbon Dioxide Level 27, Anion Gap 13, Blood Urea Nitrogen 21, Creatinine 1.3H, Estimat Glomerular Filtration Rate > 60, Glucose Level 150H, Calcium Level 9.4, Iron Level 12L, Total Iron Binding Capacity 248L, Percent Iron Saturation 5L, Unsaturated Iron Binding 236, Ferritin 54, Vitamin B12 Level 457, Folate [ Pending] Current Medications Medications (Trade) Dose Ordered Sig/Jannie Route PRN Reason Start Time Stop Time Status Last Admin Dose Admin Albuterol/ Ipratropium (DuoNeb 0.5-3(2.5)mg/3ml) 3 ml Q4H PRN HHN dyspnea 10/05/16 16:00 10/10/16 15:59 10/06/16 20:12 Dextrose (Dextrose 50%) STAT PRN IV Hypoglycemia 10/05/16 16:00 11/04/16 15:59 Heparin Sodium (Porcine) (Heparin 5000 units/ml) 5,000 units EVERY 12 HOURS SUBQ 10/05/16 21:00 11/04/16 20:59 10/06/16 20:08 Insulin Aspart (NovoLOG) BEFORE MEALS AND HS SUBQ 10/05/16 16:30 11/04/16 16:29 10/06/16 21:50 Ketorolac Tromethamine (Toradol 30mg) 30 mg Q8H PRN IV moderate pain 4-6 10/05/16 16:00 10/10/16 15:59 10/06/16 19:07 Lorazepam (Ativan 2mg/ml 1ml) 0.5 mg Q4H PRN IV For Anxiety 10/05/16 16:00 10/12/16 15:59 Methylprednisolone Sodium Succinate (Solu-MEDROL) 60 mg EVERY 6 HOURS IV 10/05/16 18:00 11/04/16 17:59 10/06/16 19:06 Morphine Sulfate (Morphine Sulfate) 2 mg Q4H PRN IVP severe pain 7-10 10/05/16 16:00 10/12/16 15:59 10/06/16 15:18 Nitroglycerin (Ntg) 0.4 mg Q5M X 3 DOSES PRN SL Prn Chest Pain 10/05/16 16:00 11/04/16 15:59 Ondansetron HCl (Zofran) 4 mg Q6H PRN IVP Nausea & Vomiting 10/05/16 16:00 11/04/16 15:59 10/06/16 15:18 Piperacillin Sod/ Tazobactam Sod 3.375 gm/Dextrose 110 ml @ 27.5 mls/hr Q8H IVPB 10/05/16 20:00 10/12/16 19:59 10/06/16 20:06 Promethazine HCl/ Codeine (Phenergan with Codeine) 5 ml Q6H PRN ORAL cough 10/05/16 16:00 11/04/16 15:59 10/06/16 20:05 Sodium Chloride (0.45% NS 1000ml) 1,000 ml @ 75 mls/hr [id number] IV 10/06/16 19:30 11/05/16 19:29 10/06/16 19:50 Temazepam (Restoril) 15 mg HSPRN PRN ORAL Insomnia 10/05/16 16:00 10/12/16 15:59 Theophylline (Michael-Dur) 100 mg EVERY 12 HOURS ORAL 10/05/16 21:00 11/04/16 20:59 10/06/16 20:05 Vancomycin HCl 1 ea 1 ea DAILY PRN MISC PRN RX PROTOCOL 10/05/16 16:00 11/04/16 15:59 Vancomycin HCl/ Dextrose (Vancomycin/D5W) 275 ml @ 183.708 mls/hr Q12HR@0400,1600 IVPB 10/05/16 16:00 10/10/16 15:59 10/06/16 16:57 JORGE ALLEN Oct 06, 2016 22:50
[2016-10-07] VITALS: BP 124/70
[2016-10-07] MEDS: Solu-MEDROL 125mg Inj IV SCH ×4 (00:35→17:44)
[2016-10-07 03:17] LABS: MEAN CORPUSCULAR HEMOGLOBIN 25.6 PG (27.0-31.0); MEAN CORPUSCULAR HGB CONC 32.2 G/DL (32.0-36.0); MEAN CORPUSCULAR VOLUME 79 FL (80-99); MEAN PLATELET VOLUME 6.7 FL (6.5-10.1); PLATELET COUNT 527 K/UL (150-450); RED CELL DISTRIBUTION WIDTH 14.6 % (11.6-14.8); WHITE BLOOD COUNT 20.2 K/UL (4.8-10.8)
[2016-10-07] MEDS: Vancomycin 1 GM in D5W 275 ML IVPB SCH ×3 (03:59→20:58)
[2016-10-07 04:00] VITALS: BP 131/74
[2016-10-07] MEDS: Ketorolac 30mg Inj IV PRN ×3 (04:13→20:56)
[2016-10-07 04:19] LABS: ANION GAP 16 (5-15); CARBON DIOXIDE 25 mEQ/L (20-30); CHLORIDE 99 mEQ/L (98-107); CREATININE 1.2 mg/dL (0.7-1.2); GLOMERULAR FILTRATION RATE > 60 mL/min (>60); HEMOLYSIS 0; POTASSIUM 4.3 mEQ/L (3.4-4.9); SODIUM 140 mEQ/L (135-145)
[2016-10-07] MEDS: Piperacillin/Tazobactam 3.375 GM in D5W 110 ML IVPB SCH ×3 (05:24→22:47)
[2016-10-07] MEDS: NovoLOG Insulin Flexpen SUBQ SCH ×4 (06:53→20:59)
[2016-10-07 08:00] VITALS: BP 106/66
[2016-10-07] MEDS: Theophylline ER 100mg ORAL SCH ×2 (08:13→20:56)
[2016-10-07] MEDS: Heparin 5000 units/ml inj SUBQ SCH ×2 (08:14→20:56)
--- NOTE | 2016-10-07 08:33 | Diagnostic Imaging Report ---
Indication: Shortness of breath Technique: XRAY CHEST 1 V Comparison: None Findings: Cardiac silhouette is within normal limits. There is bilateral hilar prominence. Bilateral pleural effusions are present, left greater than right. Mixed bilateral interstitial and airspace disease is seen. Impression: Bilateral interstitial and airspace infiltrates. Bilateral pleural effusions, left greater than right.
[2016-10-07 08:45] LABS: BAND NEUTROPHILS % (MANUAL) 0 % (0-8); BASOPHILS % (MANUAL) 0 % (0-2); EOSINOPHILS % (MANUAL) 0 % (0-3); HYPOCHROMASIA 3+; LYMPHOCYTES % (MANUAL) 2 % (20-45); MICROCYTES 1+; NEUTROPHILS % (MANUAL) 95 % (45-75); PLATELET ESTIMATE ADEQUATE; PLATELET MORPHOLOGY NORMAL; TOTAL CELLS COUNTED 100
[2016-10-07 12:00] VITALS: BP 140/75
--- NOTE | 2016-10-07 12:50 | General Progress Note ---
Assessment/Plan Problem List: (1) Iron deficiency anemia ICD Codes: D50.9 - Iron deficiency anemia, unspecified SNOMED: 75597777 (2) Renal cell cancer ICD Codes: C64.9 - Malignant neoplasm of unspecified kidney, except renal pelvis SNOMED: 251627163, 55015152 Assessment/Plan iv iron fu oncology and urology Subjective ROS Limited/Unobtainable: Yes Allergies: Coded Allergies: No Known Allergies (Unverified , 10/04/16) All Systems: reviewed and negative except above Objective Last 24 Hour Vital Signs Date Time Temp Pulse Resp B/P Pulse Ox O2 Delivery O2 Flow Rate FiO2 10/07/16 12:00 97.7 112 20 140/75 100 Nasal Cannula 10/07/16 08:00 90 19 106/66 98 Nasal Cannula 10/07/16 04:00 97.7 99 18 131/74 97 Nasal Cannula 5.0 10/07/16 00:00 98.1 20 124/70 97 Nasal Cannula 5.0 10/06/16 23:49 111 20 99 Nasal Cannula 5.0 40 10/06/16 23:39 110 20 98 Nasal Cannula 5.0 10/06/16 20:20 108 23 99 Nasal Cannula 5.0 40 10/06/16 20:12 107 23 98 Nasal Cannula 5.0 40 10/06/16 20:00 97.7 105 18 129/73 99 Nasal Cannula 5.0 10/06/16 16:00 98.1 107 18 127/64 98 Nasal Cannula 5.0 10/06/16 15:53 110 23 99 Nasal Cannula 5.0 40 10/06/16 15:45 110 23 97 Nasal Cannula 5.0 40 Intake and Output 10/06/16 10/07/16 19:00 07:00 Intake Total 510 ml 2040 ml Output Total 200 ml Balance 510 ml 1840 ml Intake Oral 360 ml 240 ml IV Total 150 ml 1800 ml Output Urine Total 200 ml # Voids 2 2 Laboratory Tests 10/07/16 03:00: White Blood Count 20.2H, Red Blood Count 3.40L, Hemoglobin 8.7L, Hematocrit 27.0L, Mean Corpuscular Volume 79L, Mean Corpuscular Hemoglobin 25.6L, Mean Corpuscular Hemoglobin Concent 32.2, Red Cell Distribution Width 14.6, Platelet Count 527H, Mean Platelet Volume 6.7, Neutrophils (%) (Auto) , Lymphocytes (%) ( Auto) , Monocytes (%) (Auto) , Eosinophils (%) (Auto) , Basophils (%) (Auto) , Differential Total Cells Counted 100, Neutrophils % (Manual) 95H, Lymphocytes % (Manual) 2L, Monocytes % (Manual) 3, Eosinophils % (Manual) 0, Basophils % ( Manual) 0, Band Neutrophils 0, Platelet Estimate Adequate, Platelet Morphology Normal, Hypochromasia 3+, Microcytosis 1+, Sodium Level 140, Potassium Level 4.3 , Chloride Level 99, Carbon Dioxide Level 25, Anion Gap 16H, Blood Urea Nitrogen 19, Creatinine 1.2, Estimat Glomerular Filtration Rate > 60, Glucose Level 187H, Calcium Level 9.0, Vancomycin Level Trough 9.7 10/07/16 10:13: Stool Occult Blood [Pending] Height (Feet): 6 Weight (Pounds): 160 General Appearance: alert EENT: normal ENT inspection Neck: supple Cardiovascular: normal rate Respiratory/Chest: lungs clear Abdomen: normal bowel sounds, non tender, soft Extremities: non-tender LUCI DIAZ Oct 07, 2016 12:50
--- NOTE | 2016-10-07 13:58 | General Progress Note ---
Assessment/Plan Problem List: (1) Renal cell cancer ICD Codes: C64.9 - Malignant neoplasm of unspecified kidney, except renal pelvis SNOMED: 000195958, 38145022 (2) Hemoptysis ICD Codes: R04.2 - Hemoptysis SNOMED: 66212114 (3) Renal mass, right ICD Codes: N28.89 - Other specified disorders of kidney and ureter SNOMED: 098994270 (4) Hypoxia ICD Codes: R09.02 - Hypoxemia SNOMED: 964805433, 10871416 Status: stable, progressing, tolerating diet Assessment/Plan o2 pulm tx abx cbc bmp am heme and gi f/u Subjective Constitutional: Reports: weakness Allergies: Coded Allergies: No Known Allergies (Unverified , 10/04/16) All Systems: reviewed and negative except above Subjective sleepy calm Objective Last 24 Hour Vital Signs Date Time Temp Pulse Resp B/P Pulse Ox O2 Delivery O2 Flow Rate FiO2 10/07/16 12:00 97.7 112 20 140/75 100 Nasal Cannula 10/07/16 08:00 90 19 106/66 98 Nasal Cannula 10/07/16 04:00 97.7 99 18 131/74 97 Nasal Cannula 5.0 10/07/16 00:00 98.1 20 124/70 97 Nasal Cannula 5.0 10/06/16 23:49 111 20 99 Nasal Cannula 5.0 40 10/06/16 23:39 110 20 98 Nasal Cannula 5.0 10/06/16 20:20 108 23 99 Nasal Cannula 5.0 40 10/06/16 20:12 107 23 98 Nasal Cannula 5.0 40 10/06/16 20:00 97.7 105 18 129/73 99 Nasal Cannula 5.0 10/06/16 16:00 98.1 107 18 127/64 98 Nasal Cannula 5.0 10/06/16 15:53 110 23 99 Nasal Cannula 5.0 40 10/06/16 15:45 110 23 97 Nasal Cannula 5.0 40 Intake and Output 10/06/16 10/07/16 19:00 07:00 Intake Total 510 ml 2040 ml Output Total 200 ml Balance 510 ml 1840 ml Intake Oral 360 ml 240 ml IV Total 150 ml 1800 ml Output Urine Total 200 ml # Voids 2 2 Laboratory Tests 10/07/16 03:00: White Blood Count 20.2H, Red Blood Count 3.40L, Hemoglobin 8.7L, Hematocrit 27.0L, Mean Corpuscular Volume 79L, Mean Corpuscular Hemoglobin 25.6L, Mean Corpuscular Hemoglobin Concent 32.2, Red Cell Distribution Width 14.6, Platelet Count 527H, Mean Platelet Volume 6.7, Neutrophils (%) (Auto) , Lymphocytes (%) ( Auto) , Monocytes (%) (Auto) , Eosinophils (%) (Auto) , Basophils (%) (Auto) , Differential Total Cells Counted 100, Neutrophils % (Manual) 95H, Lymphocytes % (Manual) 2L, Monocytes % (Manual) 3, Eosinophils % (Manual) 0, Basophils % ( Manual) 0, Band Neutrophils 0, Platelet Estimate Adequate, Platelet Morphology Normal, Hypochromasia 3+, Microcytosis 1+, Sodium Level 140, Potassium Level 4.3 , Chloride Level 99, Carbon Dioxide Level 25, Anion Gap 16H, Blood Urea Nitrogen 19, Creatinine 1.2, Estimat Glomerular Filtration Rate > 60, Glucose Level 187H, Calcium Level 9.0, Vancomycin Level Trough 9.7 10/07/16 10:13: Stool Occult Blood [Pending] Height (Feet): 6 Weight (Pounds): 160 General Appearance: lethargic EENT: normal ENT inspection Neck: normal alignment Cardiovascular: normal peripheral pulses, normal rate, regular rhythm Respiratory/Chest: chest wall non-tender, lungs clear, normal breath sounds Abdomen: normal bowel sounds, non tender, soft Extremities: normal inspection Edema: no edema noted Arm (L), no edema noted Arm (R), no edema noted Leg (L), no edema noted Leg (R), no edema noted Pedal (L), no edema noted Pedal (R), no edema noted Generalized Neurologic: responsive, motor weakness Skin: normal pigmentation, warm/dry BALDOMERO ARCE Oct 07, 2016 13:58
--- NOTE | 2016-10-07 15:53 | Infectious Diseases Prog Note ---
Assessment/Plan Problems: (1) CAP (community acquired pneumonia) Assessment & Plan: on zosyn , and vancomycin,since he is immunocompromised , improving, blood culture and sputum culture are negative so far . (2) Lung mass Assessment & Plan: with chronic tobacco abuse , rule out malignancy, recommend lung biopsy , and CT surgeon eval. pulmonary is following (3) Hemoptysis Assessment & Plan: due to the above , monitor H/H, and coagulation , transfuse blood as needed . pulmonary is following (4) Renal mass, right Assessment & Plan: suspect malignancy, recommend urologist consultation for possible surgical resection, and possible chemo therapy Subjective Constitutional: Reports: no symptoms HEENT: Reports: no symptoms Respiratory: Reports: dry cough, shortness of breath Cardiovascular: Reports: no symptoms Gastrointestinal/Abdominal: Reports: no symptoms Genitourinary: Reports: no symptoms Neurologic: Reports: no symptoms Psychiatric: Reports: no symptoms Skin: Reports: no symptoms Allergies: Coded Allergies: No Known Allergies (Unverified , 10/04/16) Objective Vital Signs Last 24 Hour Vital Signs Date Time Temp Pulse Resp B/P Pulse Ox O2 Delivery O2 Flow Rate FiO2 10/07/16 12:00 97.7 112 20 140/75 100 Nasal Cannula 10/07/16 08:00 90 19 106/66 98 Nasal Cannula 10/07/16 04:00 97.7 99 18 131/74 97 Nasal Cannula 5.0 10/07/16 00:00 98.1 20 124/70 97 Nasal Cannula 5.0 10/06/16 23:49 111 20 99 Nasal Cannula 5.0 40 10/06/16 23:39 110 20 98 Nasal Cannula 5.0 10/06/16 20:20 108 23 99 Nasal Cannula 5.0 40 10/06/16 20:12 107 23 98 Nasal Cannula 5.0 40 10/06/16 20:00 97.7 105 18 129/73 99 Nasal Cannula 5.0 10/06/16 16:00 98.1 107 18 127/64 98 Nasal Cannula 5.0 10/06/16 15:53 110 23 99 Nasal Cannula 5.0 40 Height (Feet): 6 Weight (Pounds): 160 General Appearance: WD/WN, no acute distress HEENT: normocephalic, atraumatic, anicteric, mucous membranes moist Respiratory/Chest: chest wall non-tender, normal breath sounds, no respiratory distress, no accessory muscle use, decreased breath sounds, crackles/rales Cardiovascular: normal peripheral pulses, normal rate, regular rhythm, no gallop/murmur Abdomen: normal bowel sounds, soft, non tender, no organomegaly, non distended , no mass Extremities: no cyanosis, no clubbing Skin: no rash, no lesions Microbiology Date/Time Source Procedure Growth Status 10/04/16 19:42 Blood Blood Culture - Preliminary NO GROWTH AFTER 48 HOURS Resulted 10/04/16 19:42 Blood Blood Culture - Preliminary NO GROWTH AFTER 48 HOURS Resulted 10/04/16 20:01 Urine,Clean Catch Urine Culture - Final NO GROWTH AFTER 48 HOURS Complete Laboratory Tests Test 10/07/16 03:00 10/07/16 10:13 White Blood Count 20.2 K/UL (4.8-10.8) H Red Blood Count 3.40 M/UL (4.70-6.10) L Hemoglobin 8.7 G/DL (14.2-18.0) L Hematocrit 27.0 % (42.0-52.0) L Mean Corpuscular Volume 79 FL (80-99) L Mean Corpuscular Hemoglobin 25.6 PG (27.0-31.0) L Mean Corpuscular Hemoglobin Concent 32.2 G/DL (32.0-36.0) Red Cell Distribution Width 14.6 % (11.6-14.8) Platelet Count 527 K/UL (150-450) H Mean Platelet Volume 6.7 FL (6.5-10.1) Neutrophils (%) (Auto) % (45.0-75.0) Lymphocytes (%) (Auto) % (20.0-45.0) Monocytes (%) (Auto) % (1.0-10.0) Eosinophils (%) (Auto) % (0.0-3.0) Basophils (%) (Auto) % (0.0-2.0) Differential Total Cells Counted 100 Neutrophils % (Manual) 95 % (45-75) H Lymphocytes % (Manual) 2 % (20-45) L Monocytes % (Manual) 3 % (1-10) Eosinophils % (Manual) 0 % (0-3) Basophils % (Manual) 0 % (0-2) Band Neutrophils 0 % (0-8) Platelet Estimate Adequate Platelet Morphology Normal Hypochromasia 3+ Microcytosis 1+ Sodium Level 140 mEQ/L (135-145) Potassium Level 4.3 mEQ/L (3.4-4.9) Chloride Level 99 mEQ/L (98-107) Carbon Dioxide Level 25 mEQ/L (20-30) Anion Gap 16 (5-15) H Blood Urea Nitrogen 19 mg/dL (7-23) Creatinine 1.2 mg/dL (0.7-1.2) Estimat Glomerular Filtration Rate > 60 mL/min (>60) Glucose Level 187 mg/dL (74-106) H Calcium Level 9.0 mg/dL (8.6-10.2) Vancomycin Level Trough 9.7 ug/mL (5.0-12.0) Stool Occult Blood Pending Current Medications Medications (Trade) Dose Ordered Sig/Jannie Route PRN Reason Start Time Stop Time Status Last Admin Dose Admin Albuterol/ Ipratropium (DuoNeb 0.5-3(2.5)mg/3ml) 3 ml Q4H PRN HHN dyspnea 10/05/16 16:00 10/10/16 15:59 10/06/16 23:39 Dextrose (Dextrose 50%) STAT PRN IV Hypoglycemia 10/05/16 16:00 11/04/16 15:59 Heparin Sodium (Porcine) (Heparin 5000 units/ml) 5,000 units EVERY 12 HOURS SUBQ 10/05/16 21:00 11/04/16 20:59 10/07/16 08:14 Insulin Aspart (NovoLOG) BEFORE MEALS AND HS SUBQ 10/05/16 16:30 11/04/16 16:29 10/07/16 12:16 Ketorolac Tromethamine (Toradol 30mg) 30 mg Q8H PRN IV moderate pain 4-6 10/05/16 16:00 10/10/16 15:59 10/07/16 12:34 Lorazepam (Ativan 2mg/ml 1ml) 0.5 mg Q4H PRN IV For Anxiety 10/05/16 16:00 10/12/16 15:59 Methylprednisolone Sodium Succinate (Solu-MEDROL) 60 mg EVERY 6 HOURS IV 10/05/16 18:00 11/04/16 17:59 10/07/16 12:15 Morphine Sulfate (Morphine Sulfate) 2 mg Q4H PRN IVP severe pain 7-10 10/05/16 16:00 10/12/16 15:59 10/06/16 15:18 Nitroglycerin (Ntg) 0.4 mg Q5M X 3 DOSES PRN SL Prn Chest Pain 10/05/16 16:00 11/04/16 15:59 Ondansetron HCl (Zofran) 4 mg Q6H PRN IVP Nausea & Vomiting 10/05/16 16:00 11/04/16 15:59 10/06/16 15:18 Piperacillin Sod/ Tazobactam Sod/ Dextrose (Zosyn/D5W) 110 ml @ 27.5 mls/hr Q8H IVPB 10/05/16 20:00 10/12/16 19:59 10/07/16 12:40 Promethazine HCl/ Codeine (Phenergan with Codeine) 5 ml Q6H PRN ORAL cough 10/05/16 16:00 11/04/16 15:59 10/06/16 20:05 Sodium Chloride 1,000 ml @ 75 mls/hr [id number] IV 10/06/16 19:30 11/05/16 19:29 10/06/16 19:50 Temazepam (Restoril) 15 mg HSPRN PRN ORAL Insomnia 10/05/16 16:00 10/12/16 15:59 Theophylline (Michael-Dur) 100 mg EVERY 12 HOURS ORAL 10/05/16 21:00 11/04/16 20:59 10/07/16 08:13 Vancomycin HCl 1 ea 1 ea DAILY PRN MISC PRN RX PROTOCOL 10/05/16 16:00 11/04/16 15:59 Vancomycin HCl/ Dextrose (Vancomycin/D5W) 275 ml @ 183.708 mls/hr Q8H IVPB 10/07/16 12:00 10/12/16 11:59 10/07/16 11:11 Huang Sterling M.D. Oct 07, 2016 15:53
[2016-10-07 16:00] VITALS: BP 133/78
[2016-10-07 20:00] VITALS: BP 83/57
[2016-10-07] MEDS: DuoNeb 0.5-3(2.5)mg/3ml neb HHN PRN (20:41)
--- NOTE | 2016-10-07 23:03 | General Progress Note ---
Assessment/Plan Assessment/Plan IMPRESSION: 1. 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 Thereafter can consider chemo, immunotherapy (IL-2) v targeted agents 2. Anemia of malignancy 3. Bilateral hilar adenopathy, likely renal cell ca 4. Metastasis to the lung, of renal cell ca 5. Bilateral pleural effusion, rule out malignant pleural effusion. 6. Leukocytosis with left shift. 7. Anemia of malignancy. 10. Thrombocytosis, reactive. 11. Hemoptysis. 12. Respiratory insufficiency. 13. History of hematuria. 14. Failure to thrive. RECOMMENDATIONS: 1. Plan at [facility] was resection of renal mass, [place] [facility] [place], ideally would be discharge or transferred by then, of critical importance for renal mass resection. Thereafter can consider further treatment as needed 2. Imaging has been reviewed 3. Appreciate GI recs 4. Urology evaluation for possible right-sided nephrectomy at [facility] 5. Doppler of bilateral lower extremities to rule out DVT. 6. Heparin subcutaneously for DVT prophylaxis. 7. Hgb goal >7 8. Close followup. Thank you, Mk Calderon MD Subjective Constitutional: Reports: no symptoms HEENT: Reports: no symptoms Cardiovascular: Reports: no symptoms Respiratory: Reports: no symptoms Gastrointestinal/Abdominal: Reports: poor appetite Genitourinary: Reports: no symptoms Neurologic/Psychiatric: Reports: no symptoms Endocrine: Reports: no symptoms Hematologic/Lymphatic: Reports: anemia Allergies: Coded Allergies: No Known Allergies (Unverified , 10/04/16) Subjective [place] [facility] [place] Objective Last 24 Hour Vital Signs Date Time Temp Pulse Resp B/P Pulse Ox O2 Delivery O2 Flow Rate FiO2 10/07/16 20:00 97.9 88 22 83/57 100 Nasal Cannula 100.0 10/07/16 16:00 97.7 111 20 133/78 98 Nasal Cannula 10/07/16 12:00 97.7 112 20 140/75 100 Nasal Cannula 10/07/16 08:00 90 19 106/66 98 Nasal Cannula 10/07/16 04:00 97.7 99 18 131/74 97 Nasal Cannula 5.0 10/07/16 00:00 98.1 20 124/70 97 Nasal Cannula 5.0 10/06/16 23:49 111 20 99 Nasal Cannula 5.0 40 10/06/16 23:39 110 20 98 Nasal Cannula 5.0 Intake and Output 10/06/16 10/07/16 19:00 07:00 Intake Total 510 ml 2040 ml Output Total 200 ml Balance 510 ml 1840 ml Intake Oral 360 ml 240 ml IV Total 150 ml 1800 ml Output Urine Total 200 ml # Voids 2 2 Laboratory Tests 10/07/16 03:00: White Blood Count 20.2H, Red Blood Count 3.40L, Hemoglobin 8.7L, Hematocrit 27.0L, Mean Corpuscular Volume 79L, Mean Corpuscular Hemoglobin 25.6L, Mean Corpuscular Hemoglobin Concent 32.2, Red Cell Distribution Width 14.6, Platelet Count 527H, Mean Platelet Volume 6.7, Neutrophils (%) (Auto) , Lymphocytes (%) ( Auto) , Monocytes (%) (Auto) , Eosinophils (%) (Auto) , Basophils (%) (Auto) , Differential Total Cells Counted 100, Neutrophils % (Manual) 95H, Lymphocytes % (Manual) 2L, Monocytes % (Manual) 3, Eosinophils % (Manual) 0, Basophils % ( Manual) 0, Band Neutrophils 0, Platelet Estimate Adequate, Platelet Morphology Normal, Hypochromasia 3+, Microcytosis 1+, Sodium Level 140, Potassium Level 4.3 , Chloride Level 99, Carbon Dioxide Level 25, Anion Gap 16H, Blood Urea Nitrogen 19, Creatinine 1.2, Estimat Glomerular Filtration Rate > 60, Glucose Level 187H, Calcium Level 9.0, Vancomycin Level Trough 9.7 10/07/16 10:13: Stool Occult Blood [Pending] Height (Feet): 6 Weight (Pounds): 160 General Appearance: no apparent distress EENT: TMs normal Neck: supple Cardiovascular: regular rhythm Respiratory/Chest: normal breath sounds Abdomen: soft Extremities: non-tender Edema: 1+ Leg (L), 1+ Leg (R) Edema: mild edema Neurologic: no motor/sensory deficits Skin: warm/dry Mk Calderon Oct 07, 2016 23:03
--- NOTE | 2016-10-07 23:27 | Pulmonology Progress Note ---
Assessment/Plan Problems: (1) Lung mass (2) Acute respiratory failure (3) Hemoptysis (4) Hypoxia (5) Renal cell cancer Subjective Allergies: Coded Allergies: No Known Allergies (Unverified , 10/04/16) Objective Last 24 Hour Vital Signs Date Time Temp Pulse Resp B/P Pulse Ox O2 Delivery O2 Flow Rate FiO2 10/07/16 20:00 97.9 88 22 83/57 100 Nasal Cannula 100.0 10/07/16 16:00 97.7 111 20 133/78 98 Nasal Cannula 10/07/16 12:00 97.7 112 20 140/75 100 Nasal Cannula 10/07/16 08:00 90 19 106/66 98 Nasal Cannula 10/07/16 04:00 97.7 99 18 131/74 97 Nasal Cannula 5.0 10/07/16 00:00 98.1 20 124/70 97 Nasal Cannula 5.0 10/06/16 23:49 111 20 99 Nasal Cannula 5.0 40 10/06/16 23:39 110 20 98 Nasal Cannula 5.0 Intake and Output 10/06/16 10/07/16 19:00 07:00 Intake Total 510 ml 2040 ml Output Total 200 ml Balance 510 ml 1840 ml Intake Oral 360 ml 240 ml IV Total 150 ml 1800 ml Output Urine Total 200 ml # Voids 2 2 Laboratory Tests 10/07/16 03:00: White Blood Count 20.2H, Red Blood Count 3.40L, Hemoglobin 8.7L, Hematocrit 27.0L, Mean Corpuscular Volume 79L, Mean Corpuscular Hemoglobin 25.6L, Mean Corpuscular Hemoglobin Concent 32.2, Red Cell Distribution Width 14.6, Platelet Count 527H, Mean Platelet Volume 6.7, Neutrophils (%) (Auto) , Lymphocytes (%) ( Auto) , Monocytes (%) (Auto) , Eosinophils (%) (Auto) , Basophils (%) (Auto) , Differential Total Cells Counted 100, Neutrophils % (Manual) 95H, Lymphocytes % (Manual) 2L, Monocytes % (Manual) 3, Eosinophils % (Manual) 0, Basophils % ( Manual) 0, Band Neutrophils 0, Platelet Estimate Adequate, Platelet Morphology Normal, Hypochromasia 3+, Microcytosis 1+, Sodium Level 140, Potassium Level 4.3 , Chloride Level 99, Carbon Dioxide Level 25, Anion Gap 16H, Blood Urea Nitrogen 19, Creatinine 1.2, Estimat Glomerular Filtration Rate > 60, Glucose Level 187H, Calcium Level 9.0, Vancomycin Level Trough 9.7 10/07/16 10:13: Stool Occult Blood [Pending] Current Medications Medications (Trade) Dose Ordered Sig/Jannie Route PRN Reason Start Time Stop Time Status Last Admin Dose Admin Albuterol/ Ipratropium (DuoNeb 0.5-3(2.5)mg/3ml) 3 ml Q4H PRN HHN dyspnea 10/05/16 16:00 10/10/16 15:59 10/07/16 20:41 Dextrose (Dextrose 50%) STAT PRN IV Hypoglycemia 10/05/16 16:00 11/04/16 15:59 Heparin Sodium (Porcine) (Heparin 5000 units/ml) 5,000 units EVERY 12 HOURS SUBQ 10/05/16 21:00 11/04/16 20:59 10/07/16 20:56 Insulin Aspart (NovoLOG) BEFORE MEALS AND HS SUBQ 10/05/16 16:30 11/04/16 16:29 10/07/16 20:59 Ketorolac Tromethamine (Toradol 30mg) 30 mg Q8H PRN IV moderate pain 4-6 10/05/16 16:00 10/10/16 15:59 10/07/16 20:56 Lorazepam (Ativan 2mg/ml 1ml) 0.5 mg Q4H PRN IV For Anxiety 10/05/16 16:00 10/12/16 15:59 Methylprednisolone Sodium Succinate (Solu-MEDROL) 60 mg EVERY 6 HOURS IV 10/05/16 18:00 11/04/16 17:59 10/07/16 17:44 Morphine Sulfate (Morphine Sulfate) 2 mg Q4H PRN IVP severe pain 7-10 10/05/16 16:00 10/12/16 15:59 10/06/16 15:18 Nitroglycerin (Ntg) 0.4 mg Q5M X 3 DOSES PRN SL Prn Chest Pain 10/05/16 16:00 11/04/16 15:59 Ondansetron HCl (Zofran) 4 mg Q6H PRN IVP Nausea & Vomiting 10/05/16 16:00 11/04/16 15:59 10/06/16 15:18 Piperacillin Sod/ Tazobactam Sod/ Dextrose (Zosyn/D5W) 110 ml @ 27.5 mls/hr Q8H IVPB 10/05/16 20:00 10/12/16 19:59 10/07/16 22:47 Promethazine HCl/ Codeine (Phenergan with Codeine) 5 ml Q6H PRN ORAL cough 10/05/16 16:00 11/04/16 15:59 10/06/16 20:05 Sodium Chloride 1,000 ml @ 75 mls/hr [id number] IV 10/06/16 19:30 11/05/16 19:29 10/06/16 19:50 Temazepam (Restoril) 15 mg HSPRN PRN ORAL Insomnia 10/05/16 16:00 10/12/16 15:59 Theophylline (Michael-Dur) 100 mg EVERY 12 HOURS ORAL 10/05/16 21:00 11/04/16 20:59 10/07/16 20:56 Vancomycin HCl 1 ea 1 ea DAILY PRN MISC PRN RX PROTOCOL 10/05/16 16:00 11/04/16 15:59 Vancomycin HCl/ Dextrose (Vancomycin/D5W) 275 ml @ 183.708 mls/hr Q8H IVPB 10/07/16 12:00 10/12/16 11:59 10/07/16 20:58 JORGE ALLEN Oct 07, 2016 23:27
[2016-10-08] VITALS: BP 122/61
[2016-10-08] MEDS: DuoNeb 0.5-3(2.5)mg/3ml neb HHN PRN ×2 (00:01→10:08)
[2016-10-08] MEDS: Solu-MEDROL 125mg Inj IV SCH ×2 (00:46→06:10)
[2016-10-08] MEDS: Vancomycin 1 GM in D5W 275 ML IVPB SCH (03:54)
[2016-10-08 03:57] VITALS: BP 121/73
[2016-10-08] MEDS: Piperacillin/Tazobactam 3.375 GM in D5W 110 ML IVPB SCH (06:10)
[2016-10-08] MEDS: NovoLOG Insulin Flexpen SUBQ SCH (06:25)
[2016-10-08] MEDS: Ketorolac 30mg Inj IV PRN (06:45)
[2016-10-08 07:07] LABS: MEAN CORPUSCULAR HEMOGLOBIN 25.6 PG (27.0-31.0); MEAN CORPUSCULAR HGB CONC 32.2 G/DL (32.0-36.0); MEAN CORPUSCULAR VOLUME 80 FL (80-99); MEAN PLATELET VOLUME 7.2 FL (6.5-10.1); PLATELET COUNT 501 K/UL (150-450); RED BLOOD COUNT 3.29 M/UL (4.70-6.10); RED CELL DISTRIBUTION WIDTH 15.5 % (11.6-14.8); WHITE BLOOD COUNT 17.3 K/UL (4.8-10.8)
[2016-10-08 07:20] LABS: ANION GAP 14 (5-15); CARBON DIOXIDE 24 mEQ/L (20-30); CHLORIDE 103 mEQ/L (98-107); CREATININE 1.2 mg/dL (0.7-1.2); GLOMERULAR FILTRATION RATE > 60 mL/min (>60); HEMOLYSIS 50; POTASSIUM 4.7 mEQ/L (3.4-4.9); SODIUM 141 mEQ/L (135-145)
--- NOTE | 2016-10-08 07:25 | General Progress Note ---
Assessment/Plan Problem List: (1) Renal cell cancer ICD Codes: C64.9 - Malignant neoplasm of unspecified kidney, except renal pelvis SNOMED: 120528258, 48151914 (2) Hemoptysis ICD Codes: R04.2 - Hemoptysis SNOMED: 65008188 (3) Renal mass, right ICD Codes: N28.89 - Other specified disorders of kidney and ureter SNOMED: 810323930 (4) Hypoxia ICD Codes: R09.02 - Hypoxemia SNOMED: 438673248, 70542788 Status: stable, progressing, tolerating diet Assessment/Plan o2 pulm tx abx cbc bmp am heme and gi f/u dc plan Subjective Constitutional: Reports: weakness Allergies: Coded Allergies: No Known Allergies (Unverified , 10/04/16) All Systems: reviewed and negative except above Subjective sleepy calm Objective Last 24 Hour Vital Signs Date Time Temp Pulse Resp B/P Pulse Ox O2 Delivery O2 Flow Rate FiO2 10/08/16 03:57 97.2 82 22 121/73 99 Nasal Cannula 2.0 10/08/16 00:04 107 16 98 Nasal Cannula 4.0 36 10/08/16 00:00 97.7 105 22 122/61 92 Room Air 10/07/16 20:00 97.9 88 22 83/57 100 Nasal Cannula 100.0 10/07/16 17:00 83 Room Air 10/07/16 16:00 97.7 111 20 133/78 98 Nasal Cannula 10/07/16 12:00 97.7 112 20 140/75 100 Nasal Cannula 10/07/16 08:00 90 19 106/66 98 Nasal Cannula Intake and Output 10/07/16 10/08/16 19:00 07:00 Intake Total 1380.000 ml 1450.000 ml Balance 1380.000 ml 1450.000 ml Intake Oral 750 ml 735 ml IV Total 630.000 ml 715.000 ml # Voids 3 4 Laboratory Tests 10/07/16 10:13: Stool Occult Blood [Pending] 10/08/16 06:35: White Blood Count 17.3H, Red Blood Count 3.29L, Hemoglobin 8.4L, Hematocrit 26.2L, Mean Corpuscular Volume 80, Mean Corpuscular Hemoglobin 25.6L, Mean Corpuscular Hemoglobin Concent 32.2, Red Cell Distribution Width 15.5H, Platelet Count 501H, Mean Platelet Volume 7.2, Neutrophils (%) (Auto) , Lymphocytes (%) (Auto) , Monocytes (%) (Auto) , Eosinophils (%) (Auto) , Basophils (%) (Auto) , Neutrophils % (Manual) [Pending], Lymphocytes % (Manual) [Pending], Platelet Estimate [Pending], Platelet Morphology [Pending], Sodium Level 141, Potassium Level 4.7, Chloride Level 103, Carbon Dioxide Level 24, Anion Gap 14, Blood Urea Nitrogen 20, Creatinine 1.2, Estimat Glomerular Filtration Rate > 60, Glucose Level 125H, Calcium Level 9.0 Height (Feet): 6 Weight (Pounds): 160 General Appearance: lethargic EENT: normal ENT inspection Neck: normal alignment Cardiovascular: normal peripheral pulses, normal rate, regular rhythm Respiratory/Chest: chest wall non-tender, lungs clear, normal breath sounds Abdomen: normal bowel sounds, non tender, soft Extremities: normal inspection Edema: no edema noted Arm (L), no edema noted Arm (R), no edema noted Leg (L), no edema noted Leg (R), no edema noted Pedal (L), no edema noted Pedal (R), no edema noted Generalized Neurologic: responsive, motor weakness Skin: normal pigmentation, warm/dry BALDOMERO ARCE Oct 08, 2016 07:25
[2016-10-08 08:02] LABS: BAND NEUTROPHILS % (MANUAL) 1 % (0-8); BASOPHILS % (MANUAL) 0 % (0-2); EOSINOPHILS % (MANUAL) 1 % (0-3); LYMPHOCYTES % (MANUAL) 3 % (20-45); NEUTROPHILS % (MANUAL) 93 % (45-75); PLATELET ESTIMATE INCREASED; PLATELET MORPHOLOGY NORMAL; TOTAL CELLS COUNTED 100
[2016-10-08 08:03] LABS: ANISOCYTOSIS 1+; HYPOCHROMASIA 1+
[2016-10-08] MEDS: Theophylline ER 100mg ORAL SCH (08:25)
[2016-10-08] MEDS: Heparin 5000 units/ml inj SUBQ SCH (08:26)
[2016-10-08 08:30] VITALS: BP 137/76
--- NOTE | 2016-10-08 09:50 | General Progress Note ---
Assessment/Plan Assessment/Plan IMPRESSION: 1. 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 Thereafter can consider chemo, immunotherapy (IL-2) v targeted agents 2. Anemia of malignancy 3. Bilateral hilar adenopathy, likely renal cell ca 4. Metastasis to the lung, of renal cell ca 5. Bilateral pleural effusion, rule out malignant pleural effusion. 6. Leukocytosis with left shift. 7. Anemia of malignancy. 10. Thrombocytosis, reactive. 11. Hemoptysis. 12. Respiratory insufficiency. 13. History of hematuria. 14. Failure to thrive. RECOMMENDATIONS: 1. Plan at [facility] was resection of renal mass, has a appt at [facility] on 10/08/16, ideally would be discharge or transferred by then, of critical importance for renal mass resection. Thereafter can consider further treatment as needed 2. Imaging has been reviewed 3. Appreciate GI recs 4. Urology evaluation for possible right-sided nephrectomy at [facility] 5. Doppler of bilateral lower extremities to rule out DVT. 6. Heparin subcutaneously for DVT prophylaxis. 7. Hgb goal >7 8. Continue to follow from oncology perspective Subjective Constitutional: Reports: no symptoms HEENT: Reports: no symptoms Cardiovascular: Reports: no symptoms Respiratory: Reports: no symptoms Genitourinary: Reports: burning Neurologic/Psychiatric: Reports: no symptoms Endocrine: Reports: no symptoms Hematologic/Lymphatic: Reports: anemia Allergies: Coded Allergies: No Known Allergies (Unverified , 10/04/16) Subjective no complaints, no fevers or chills noted Objective Last 24 Hour Vital Signs Date Time Temp Pulse Resp B/P Pulse Ox O2 Delivery O2 Flow Rate FiO2 10/08/16 03:57 97.2 82 22 121/73 99 Nasal Cannula 2.0 10/08/16 00:04 107 16 98 Nasal Cannula 4.0 36 10/08/16 00:00 97.7 105 22 122/61 92 Room Air 10/07/16 20:00 97.9 88 22 83/57 100 Nasal Cannula 100.0 10/07/16 17:00 83 Room Air 10/07/16 16:00 97.7 111 20 133/78 98 Nasal Cannula 10/07/16 12:00 97.7 112 20 140/75 100 Nasal Cannula Intake and Output 10/07/16 10/08/16 19:00 07:00 Intake Total 1380.000 ml 1450.000 ml Balance 1380.000 ml 1450.000 ml Intake Oral 750 ml 735 ml IV Total 630.000 ml 715.000 ml # Voids 3 4 Laboratory Tests 10/07/16 10:13: Stool Occult Blood [Pending] 10/08/16 06:35: White Blood Count 17.3H, Red Blood Count 3.29L, Hemoglobin 8.4L, Hematocrit 26.2L, Mean Corpuscular Volume 80, Mean Corpuscular Hemoglobin 25.6L, Mean Corpuscular Hemoglobin Concent 32.2, Red Cell Distribution Width 15.5H, Platelet Count 501H, Mean Platelet Volume 7.2, Neutrophils (%) (Auto) , Lymphocytes (%) (Auto) , Monocytes (%) (Auto) , Eosinophils (%) (Auto) , Basophils (%) (Auto) , Differential Total Cells Counted 100, Neutrophils % ( Manual) 93H, Lymphocytes % (Manual) 3L, Monocytes % (Manual) 2, Eosinophils % ( Manual) 1, Basophils % (Manual) 0, Band Neutrophils 1, Platelet Estimate IncreasedH, Platelet Morphology Normal, Hypochromasia 1+, Anisocytosis 1+, Sodium Level 141, Potassium Level 4.7, Chloride Level 103, Carbon Dioxide Level 24, Anion Gap 14, Blood Urea Nitrogen 20, Creatinine 1.2, Estimat Glomerular Filtration Rate > 60, Glucose Level 125H, Calcium Level 9.0 Height (Feet): 6 Weight (Pounds): 160 General Appearance: lethargic EENT: TMs normal Neck: supple Cardiovascular: regular rhythm Respiratory/Chest: lungs clear Abdomen: no organomegaly Extremities: normal range of motion Edema: 1+ Leg (L), 1+ Leg (R) Edema: mild edema Neurologic: alert Mk Calderon Oct 08, 2016 09:50
[2016-10-08 10:15] LABS: CRYPTOCOCCAL ANTIGEN SERUM Negative (Negative)
[2016-10-08] MEDS ORDERED: Tubing IV Secondary IV ONE (11:14)
[2016-10-08] MEDS ORDERED: D5NS 1000ml IV ONE (11:14)
[2016-10-08] MEDS ORDERED: NS 275ml ONE (11:14)
[2016-10-08 14:19] LABS: BLASTOMYCES AB - ID Negative (Neg:<1:1)
[2016-10-08 21:08] LABS: COCCIDIODES AB-CF/SERUM Negative (Neg:<1:2); HISTO AB MYCELIAL Negative (Neg:<1:2); HISTO AB YEAST Negative (Neg:<1:2); HISTOPLASMA MYCELIAL ID AB Negative (Negative)
--- NOTE | 2016-10-09 19:57 | Discharge Summary ---
Discharge Summary Hospital Course Date of Admission Oct 04, 2016 at 22:03 Date of Discharge Oct 08, 2016 at 11:15 Admitting Diagnosis hypoxia, Renal cell carcinoma JOSE ALBERTO Zach Sanchez is a 36 year old male who was admitted on Oct 04, 2016 at 22:03 for Hypoxia,Renal Cell Carcinoma Hospital Course [id number] Discharge Discharge Disposition Patient left AMA Discharge Diagnoses: Kalani Peñaloza NP Oct 09, 2016 19:57
--- NOTE | 2016-10-09 23:58 | Discharge Summary 2 SIG ---
DATE OF ADMISSION: 10/04/2016 DATE OF DISCHARGE: 10/08/2016 CONSULTANTS: 1. Parish Calderon M.D. 2. Raudel Goncalves M.D. 3. Huang Sterling M.D. 4. Abiel Mendosa D.O. BRIEF HOSPITAL COURSE: The patient is a 36-year-old male, who presented to emergency room with difficulty of breathing and hemoptysis. The patient also had been complaining of hematuria. He had a recent diagnosis of renal cell carcinoma. No history of prior biopsies done. He had increasing shortness of breath and increased cough on evaluation at ED. Chest x-ray showed evidence of lung mass. CT imaging of the chest showed extensive bilateral ground-glass opacities within the lungs with 2.7-cm round masslike lesion on the right lower lobe and a 7-cm right renal mass. He was initially placed on BiPAP and was admitted to [facility]. Dr. Andino was consulted for pulmonary management. He was seen by Dr. Calderon. The patient with right-sided renal mass, possible renal cell carcinoma although clinical diagnosis not proven. No biopsy done yet. He was started on antibiotic therapy with Zosyn and vancomycin empirically for community-acquired pneumonia. He was seen by Dr. Wilson for evaluation of anemia. Anemia was assessed to be secondary to iron deficiency and was given IV iron. Blood culture and sputum culture were negative. The patient was recommended lung biopsy resection of renal mass. He was to be referred to [facility]. However, full treatment was not carried out as the patient signed out against medical advice. FINAL DIAGNOSES: 1. Possible renal cell cancer carcinoma with metastasis to the lungs. 2. Anemia of iron deficiency. 3. Anemia of malignancy. 4. Bilateral hilar adenopathy. 5. Leukocytosis. 6. Acute renal failure requiring BiPAP. 7. Community-acquired pneumonia. Pushpa Andino M.D. I have been assigned to dictate discharge summary on this account and I was not involved in the patient's management. Kalani Peñaloza N.P. DR: KEELY JOB#: [id number] CC:
--- NOTE | 2016-10-16 10:34 | Diagnostic Imaging Report ---
APPROVED REPORT CPT Code: 64746 Present Symptoms Comments: R/O DVT BILATERAL: Imaging reveals a patent deep venous system bilaterally. There is no evidence of thrombus within the femoral, popliteal or tibial segments. The greater saphenous veins are also within normal limits. Doppler indicates normal spontaneous flow within these segments.
== END 2016-10-08 11:15 | disposition left against medical advice (07) | DRG 136 ==
LOC: EMR 21:01 → EDBEDREQSVC 21:39 → EDBEDREQ 21:39 → 2W 22:03 → EDBEDREQSVC 10-05 00:53 → EDBEDREQ 10-05 00:53 → 4W 10-05 01:50 → 2W 10-05 04:32 → 4W 10-05 15:09
PROC: 5A09357 Assistance with Respiratory Ventilation, Less than 24 Consecutive Hours, Continuous Positive Airway Pressure (ICD-10-PCS; principal; 2016-10-04)
DX: C78.00 Secondary malignant neoplasm of unspecified lung (principal); J96.01 Acute respiratory failure with hypoxia; J18.9 Pneumonia, unspecified organism; J90 Pleural effusion, not elsewhere classified; R04.2 Hemoptysis; D47.3 Essential (hemorrhagic) thrombocythemia; C64.1 Malignant neoplasm of right kidney, except renal pelvis; R62.7 Adult failure to thrive; Z87.891 Personal history of nicotine dependence; D63.0 Anemia in neoplastic disease; R31.9 Hematuria, unspecified
CPT/HCPCS: 36415; 71010; 71260; 74177; 80048; 80053; 80202; 81003; 82270; 82378; 82550; 82553; 82607; 82728; 82746; 82962; 83010; 83540; 83550; 83605; 84484; 85007; 85025; 85044; 85060; 85610; 85730; 86171; 86612; 86635; 86850; 86900; 86901; 87040; 87086; 87449; 93005; 93970; 94640; 94664; J1815; J2405; J7620